=== PATIENT | female | born 1960 | race Caucasian/White ===

== ENCOUNTER 2018-10-15 10:06 | Day surgery (SDC) | payer OTHER, SELFPAY ==
[2018-08-03 12:47] VITALS: BMI 36.6
[2018-10-15] VITALS (7 sets, daily range): BP systolic 135–160; BP diastolic 77–93; PULSE 66–77; RESP 11–21; TEMP 35.9–36.3; O2SAT 92–96; BMI 35.9
--- NOTE | 2018-10-15 | PATH_ITS ---
[facility] Accession Number: [id number] . 01 Material submitted: . endometrium - ENDOMETRIAL POLYP . 01 Clinical history: . D/C HYSTEROSCOPY/POLYPECTOMY . 02 Diagnosis: Endometrial Polyp: Benign non-atypical epithelial hyperplasia (3-4 mm) present in a background of disordered proliferative endometrium; negative for cytologic atypia and malignancy. Many tissue fragments demonstrate prominent vessels, suggestive of polyp, if clinical and imaging findings are concordant. MRV/10/16/2018 . 02 Electronically signed: . Snow Burnette MD, Pathologist NPI- [id number] . 01 Gross description: . ENDOMETRIAL POLYP: Received in formalin are 1 fragment(s) of marion, soft tissue measuring 0.1 x 0.1 x 0.1 cm to 2.0 x 0.5 x 0.5 cm which is entirely submitted and submitted entirely in 3 cassette(s) /DMC /DMC . 02 Pathologist provided ICD-10: N84.0 . 02 CPT . 360175 Performed at: 01 [facility] [address] [facility], [place], [place] [id number] MD Kwaku Gomes MD Phone: [phone] Performed at: 02 [facility] [address] [place], [place] [id number] MD Lizy Eason MD Phone: [phone]
[2018-10-15] MEDS: LACTATED RINGERS 1,000 ML 42 ML IV (10:50)
--- NOTE | 2018-10-15 11:03 | PM.HP.1 ---
History of Present Illness Date Patient Seen: 10/15/18 Time Patient Seen: 11:03 Chief complaint: [id number] D&C HYSTEROSCOPY/POLYPECTOMY Narrative: Patient is a 58-year-old with postmenopausal bleeding and an endometrial polyp here for a D&C hysteroscopy and polypectomy Patient History Medical History (Updated 10/15/18 @ 11:04 by Emily Ku MD) Anxiety (Acute) Bipolar 1 disorder (Acute) Depression (Acute) GERD (gastroesophageal reflux disease) (Acute) HLD (hyperlipidemia) (Acute) HTN (hypertension) (Acute) Hypothyroidism (Acute) Poor sleep hygiene (Acute) Pulmonary embolism, bilateral (Acute ~03/2011) Surgical History (Updated 08/03/18 @ 12:52 by Lisa Call RN) H/O LEEP (Acute 02/20/17) Hx of varicose vein stripping (Acute) Status post laminectomy (~1989) Social History household members: spouse Smoking Status: Former smoker Family & Social History Social History: household members spouse Tobacco & Substance use: Smoking Status Former smoker Substance Use Type does not use Meds Home Medications Medication Instructions Recorded Confirmed Type divalproex [Depakote ER] 500 mg PO BID #0 01/30/17 10/15/18 History escitalopram oxalate [Lexapro] 20 mg PO QDAY #0 01/30/17 10/15/18 History lisinopril 5 mg PO HS #0 01/30/17 10/15/18 History clonazepam [Klonopin] 0.25 tab PO BID #0 02/16/17 10/15/18 History divalproex [Depakote] 250 mg PO HS #0 02/16/17 10/15/18 History omeprazole 20 mg PO BID #0 02/16/17 10/15/18 History simvastatin [Zocor] 20 mg PO HS #0 02/16/17 10/15/18 History levothyroxine 75 mcg capsule 75 mcg PO DAILY 06/19/18 10/15/18 History propranolol 20 mg tablet 20 mg PO BID MDD Anxiety 06/19/18 10/15/18 History meloxicam 15 mg PO DAILY 08/07/18 10/15/18 History lithium carbonate 150 mg capsule 300 mg PO Q OTHER DAY cap 10/11/18 10/15/18 History lithium carbonate 150 mg PO Q OTHER DAY 10/15/18 10/15/18 History Allergies Allergy/AdvReac Type Severity Reaction Status Date / Time No Known Drug Allergies Allergy Verified 10/15/18 10:23 Exam Vital Signs (past 8 hours): - 10/15/18 10:37 Temperature 96.6 F L Pulse Rate 70 Respiratory Rate 20 Blood Pressure 140/77 Pulse Oximetry 95 Oxygen Delivery Method Room Air Narrative Exam Narrative: HEENT: No thyromegaly, no anterior cervical or supraclavicular lymphadenopathy. Lungs:Clear to auscultation bilaterally, no wheezes. Cardiovascular: Regular rate and rhythm, no murmurs, rubs, or gallops. Abdomen: No scars. No hepatosplenomegaly. No masses palpable. External genitalia: Normal Vagina: Normal Cervix: Normal Bimanual exam: 6 Week size uterus. Mobile. Rectal: No masses. Ultrasound: Thickened endometrial lining consistent with a polyp Assessment & Plan (1) Postmenopausal bleeding: Current visit: Yes Status: Acute (2) Endometrial polyp: Current visit: Yes Status: Acute Assessment & Plan narrative: Assessment: 58-year-old with postmenopausal bleeding and an endometrial polyp Plan: D&C hysteroscopy with polypectomy. The risks, benefits, and alternatives to the procedure were explained to the patient. The risks including bleeding, infection, and uterine perforation. She understands these risks and agrees to proceed. A full par Q was held and consent form was signed. Time Spent With Patient Time with patient: 15-24 minutes
--- NOTE | 2018-10-15 11:05 | PM.PREOP ---
Pre-operative Note Interval Note History & Physical reviewed/Exam performed by Physician: Yes Changes to H&P: No
--- NOTE | 2018-10-15 12:01 | SUR.OPER ---
Lithotomy on padded OR bed, head on pillow, arms secured on padded arm boards at <90 degrees abduction. Legs secured in padded yellow fins stirrups.
--- NOTE | 2018-10-15 12:55 | SUR.PHASEI ---
1255 A&O; stable, denies pain/nausea. tolerating PO well. Preparing to transfer.
--- NOTE | 2018-10-15 13:00 | SUR.PHASEI ---
1255 No vag flow, A&O, stable.
--- NOTE | 2018-10-15 13:17 | SUR.PHASEII ---
1315 Stable and pleasant, no vag flow, denies pain/nausea. To home w/spouse.
--- NOTE | 2018-10-16 07:58 | P.OP_ITS ---
Operative Date/Time/Diagnoses Date of procedure: 10/15/18 Time of procedure: 12:30 Pre-op diagnosis: Postmenopausal bleeding Endometrial polyp Post-op diagnosis: same Procedure: Procedures Operation Date: 10/15/18 11:15 Actual Procedures Side Surgeon p Hysteroscopy D&C, polypectomy Emily Ku MD Indications: Postmenopausal bleeding Endometrial polyp by ultrasound Surgeon: Emily Ku Anesthesia Type: General (LMA) Operative Notes Findings: Large endometrial polyp originating from the anterior fundal wall Closure Type: not applicable Specimen(s): endometrial polyp Estimated blood loss (mL): 10 Blood products transfused: none Procedure in detail: After informed consent was obtained, the patient was taken to the operating room where she was placed in the dorsal supine position. After adequate LMA general anesthesia was achieved, she was placed in the dorsal lithotomy position, and prepped and draped in the usual sterile fashion. A time-out was performed. A bivalve speculum was placed into the vagina and the anterior lip of the cervix grasped with a single-tooth tenaculum. The cervical os was sequentially dilated to the # 9 Hegar dilator. The hysteroscope passed easily into the endometrial cavity. There was a large polyp originating from the anterior fundal wall. The hysteroscope was removed from the uterus. Polyp forceps were used to remove large pieces of the polyp. The hysteroscope passed easily into the endometrial cavity. Using the resectoscope the remainder of the polyp was resected with settings at 60 cut and 40 cautery. Hemostasis was achieved. The instruments were removed from the uterus. The single-tooth t enaculum was removed from the anterior lip of the cervix. The bivalve speculum was removed from the vagina. Sponge, lap, and instrument counts were correct x2. The patient tolerated the procedure well, and was taken to PACU in stable condition. Complications: none Post-operative Condition: stable Disposition: PACU Plan for aftercare: Home after recovery
== END 2018-10-15 13:15 | disposition home or self-care (01) ==
PROVIDERS: PCP Family Medicine; Visit Provider Obstetrics & Gynecology
PROC: 0UDB8ZZ Extraction of Endometrium, Via Natural or Artificial Opening Endoscopic (ICD-10-PCS; CPT 58558; principal; 2018-10-15 11:15)
DX: N84.0 Polyp of corpus uteri (principal); N95.0 Postmenopausal bleeding; I10 Essential (primary) hypertension; E03.9 Hypothyroidism, unspecified; Z87.891 Personal history of nicotine dependence; F31.9 Bipolar disorder, unspecified; Z86.711 Personal history of pulmonary embolism
CPT/HCPCS: 58558; J1100; J1885; J2250; J2405; J2704; J3010

== ENCOUNTER → 2019-04-03 14:36 | Outpatient (CLI) | payer OTHER, SELFPAY ==
--- NOTE | 2019-04-03 | DI.ECHO.S_ITS ---
[facility]---------+ [facility] +---------+ : : [address] : : : : [id number] : : : : Phone: [phone] Echocardiogram Report + + :Name: TERESITA GRAHAM Study Date: 04/03/2019 Height: 72 in : :[facility] Weight: 270 lb : : Gender: Female BSA: 2.4 m2 : :: 1960 Age: 59 yrs BP: 132/76 mmHg: :Reason For Study: Dyspnea : : Performed By: [facility] Staff : :Referring: BREANNA RUVALCABA : + + Interpretation Summary The left ventricle is normal in size. The ejection fraction is estimated to be 60-65%. The right ventricle is mildly dilated. The right ventricular systolic function is normal. No significant valvular pathology seen. Procedure: A two-dimensional transthoracic echocardiogram with color flow and Doppler was performed. The study quality was technically adequate. There is no prior echocardiogram noted for this patient. The patient was in normal sinus rhythm during the exam. Left Ventricle: The left ventricle is normal in size. There is normal left ventricular wall thickness. There is no thrombus. Left ventricular systolic function is normal. The ejection fraction is estimated to be 60-65%. Left ventricular wall motion is normal. Diastolic parameters suggest a relaxation abnormality of the left ventricle, consistent with probable normal filling pressures. Right Ventricle: The right ventricle is mildly dilated. The right ventricular systolic function is normal. Atria: The left atrial size is normal. Right atrial size is normal. The interatrial septum is intact with no evidence for an atrial septal defect. Mitral Valve: The mitral valve leaflets are slightly calcified. There is trace mitral regurgitation. Aortic Valve: The aortic valve is trileaflet. The aortic valve opens well. There is no aortic valve stenosis. No aortic regurgitation is present. Tricuspid Valve: The tricuspid valve is normal in structure and function. There is trace tricuspid regurgitation. Pulmonary artery pressures cannot be estimated because of the lack of a measurable TR jet velocity. Pulmonic Valve: The pulmonic valve is not well visualized. There is trace pulmonic regurgitation. Great Vessels: The aortic root is normal size. The dimensions of the ascending aorta are normal. The pulmonary artery is normal size. The inferior vena cava was not well visualized. Pericardium/ Pleura There is no pericardial effusion. There is no pleural effusion. MMode/2D Measurements & Calculations LVIDd: 5.0 cm LVOT diam: 2.0 cm LVIDs: 3.1 cm Ao root diam: 2.8 cm FS: 38.5 % asc Aorta Diam: 2.9 cm EPSS: 0.77 cm IVSd: 0.94 cm LVPWd: 1.1 cm LV rodriguez. diameter/BSA (cm/m^2): 2.1 LV sys. diameter/BSA (cm/m^2): 1.3 LA A2 area: 22.0 cm2 RA long axis: 5.5 cm LA A4 area: 19.9 cm2 RA area: 13.5 cm2 LA length (vol): 5.2 cm RA vol: 28.4 ml LA vol: 71.9 ml RA : 11.7 ml/m2 LA vol index: 29.7 ml/m2 TAPSE: 1.8 cm Doppler Measurements & Calculations Ao V2 max: 143.9 cm/sec LVOT Max Bismark: 117.8 cm/sec Ao V2 mean: 97.7 cm/sec LV V1 max P.6 mmHg Ao max P.3 mmHg LV V1 VTI: 26.7 cm Ao mean P.5 mmHg ELLIS(I,D): 3.0 cm2 Ao V2 VTI: 28.7 cm ELLIS(V,D): 2.6 cm2 sev ratio: 0.93 ELLIS indexed to BSA (cm^2/m^2): 1.2 MV E max bismark: 50.7 cm/sec TR max bismark: 228.5 cm/sec MV A max bismark: 89.3 cm/sec TR max P.9 mmHg MV E/A: 0.57 PA V2 max: 80.3 cm/sec Med Peak E' Bismark: 5.8 cm/sec PA V2 mean: 57.8 cm/sec E/E' med: 8.8 PA mean P.5 mmHg Lat Peak E' Bismark: 8.6 cm/sec PA Accel Time: 0.12 sec E/E' lat: 5.9 E/e' average: 7.3 MV dec time: 0.26 sec SV(LVOT): 86.3 ml Reading Physician:03:46 PM
== END ==
PROVIDERS: PCP Family Medicine; Visit Provider Internal Medicine Cardiovascular Disease
DX: R06.09 Other forms of dyspnea (principal)
CPT/HCPCS: 93306

== ENCOUNTER → 2019-05-02 14:10 | Outpatient (CLI) | payer OTHER, SELFPAY ==
--- NOTE | 2019-05-02 | DI.RAD.S_ITS ---
PROCEDURE: XR CHEST 2V INDICATIONS: Other disorders of lung TECHNIQUE: 2 views of the chest were acquired. COMPARISON: None. FINDINGS: Surgical changes and devices: None. Lungs and pleura: There is hazy opacification of the left lung base. Mediastinum: Mediastinal contours are normal. Heart size is normal. Bones and chest wall: No suspicious bony abnormalities. IMPRESSION: Hazy opacification of the left lung base most consistent with superimposition of overlapping soft tissues, with lung disease (including atelectasis, aspiration, or pneumonia) thought less likely. Dictated by: Graham Gonzalez M.D. on 05/02/2019 at 17:14 Approved by: Graham Gonzalez M.D. on 05/02/2019 at 17:17
--- NOTE | 2019-05-02 | DI.NM.S_ITS ---
PROCEDURE: NM PUL VENT AND PERFUSION RADIOPHARMACEUTICAL: 9.8 mCi Tc-99m DTPA aerosol by inhalation and 5.7 mCi Tc-99m MAA intravenously. INDICATIONS: Other disorders of lung TECHNIQUE: Ventilation images were obtained first with Tc-99m DTPA aerosol. Subsequently, perfusion images were acquired after intravenous injection of Tc-99m MAA. Anterior, posterior, CAMPOS, YI, RPO, LPO, left and right lateral views were obtained. COMPARISON: [facility], US, PVE UNILATERAL RIGHT, 01/18/2012, 19:08. [facility], US, PVE UNILATERAL RIGHT, 04/19/2011, 19:42. [facility], CT, PE STUDY (CTA CHEST), 04/19/2011, 19:20. [facility], CR, XR CHEST 2V, 05/02/2019, 14:09. FINDINGS: The comparison chest x-ray demonstrates no pulmonary infiltrate or pleural effusion. Technetium 99m DTPA ventilation images demonstrate mild central airway deposition of aerosol, otherwise physiocological activity. Perfusion images demonstrate no pleural-based, segmental or subsegmental ventilation perfusion mismatches. Ingested activity is noted in the stomach. IMPRESSION: 1. Very low likelihood ratio for pulmonary embolism. 2. Mild central airway deposition of aerosol suggesting mild reactive airway disease. Dictated by: Cady Blackburn M.D. on 05/02/2019 at 16:14 Approved by: Cady Blackburn M.D. on 05/02/2019 at 16:19
== END ==
PROVIDERS: PCP Family Medicine; Visit Provider Internal Medicine Pulmonary Disease
DX: J98.4 Other disorders of lung (principal); R06.09 Other forms of dyspnea
CPT/HCPCS: 71046; 78582; A9539; A9540

== ENCOUNTER → 2021-03-30 10:29 | Outpatient (CLI) | payer OTHER, SELFPAY ==
[2021-03-30 12:38] LABS: Thyroid Stimulating Hormone 0.982 uIU/mL (0.47-4.68)
[2021-03-31 08:26] LABS: Valproic Acid (Depakene) Total 48 ug/mL (50-100)
== END ==
PROVIDERS: PCP Family Medicine; Referring Provider Psychiatry & Neurology Psychiatry; Visit Provider Psychiatry & Neurology Psychiatry
DX: Z79.899 Other long term (current) drug therapy (principal)
CPT/HCPCS: 36415; 80164; 84443

== ENCOUNTER 2021-05-10 12:54 | Emergency (ER) | payer OTHER, SELFPAY ==
[2021-05-10 13:02] VITALS: BP 152/78; PULSE 62; RESP 18; TEMP 37.2; O2SAT 98; BMI 22.4
[2021-05-10 16:02] LABS: Bacteria Urine None Seen; Culture Indicated Urine Cult Not Indicated; RBC Urine None Seen (0-5/HPF); WBC Urine None Seen (0-5/HPF)
--- NOTE | 2021-05-10 16:02 | DI.CT.S_ITS ---
PROCEDURE: CT ABDOMEN PELVIS W CON INDICATIONS: Right sided abdominal pain TECHNIQUE: After the administration of oral and IV contrast, axial sections were acquired from the lung bases to the pubic symphysis. Coronal and sagittal reformats were performed. For radiation dose reduction, the following was used: automated exposure control, adjustment of mA and/or kV according to patient size. COMPARISON: CT, THORAX WITH CONTRAST, 08/21/2012, 16:19. FINDINGS: Image quality: Excellent. Lung bases: Mild left basilar atelectasis. Small hiatal hernia. Heart: No significant findings. ABDOMEN: Liver: Unremarkable. Gallbladder: Is surgically absent. Biliary ducts: Unremarkable. Pancreas: Unremarkable. Spleen: Unremarkable. Adrenal Glands: Unremarkable. Kidneys and Ureters: Normal in size and symmetric in enhancement. Small cortical nodules in kidneys are most likely cysts. Stomach and Bowel: There are post surgical changes in stomach. Stomach, small bowel loops, and colon are normal in caliber. There is a large amount of stool in colon. Mild diverticulosis without diverticulitis. Normal appendix. Peritoneum: No abnormal intraperitoneal fluid. No free air. Ventral Wall: No hernia. Abdominal Nodes: No retroperitoneal or mesenteric adenopathy by size criteria. Vessels: Aorta and inferior vena cava are normal in size. PELVIS: Pelvic Organs: Unremarkable. Bladder: Unremarkable. Pelvic Nodes: No enlarged lymph nodes. Miscellaneous: No inguinal hernias are seen. Bones: Degenerative disc and facet disease in lumbar spine. IMPRESSION: 1. No acute abnormalities in abdomen or pelvis. 2. Mild diverticulosis without diverticulitis. 3. A large amount of stool in colon. 4. Small hiatal hernia. Postsurgical changes in stomach. Dictated by: Cady Blackburn M.D. on 05/10/2021 at 17:14 Approved by: Cady Blackburn M.D. on 05/10/2021 at 17:29
[2021-05-10 16:26] LABS: Add Manual Diff / Slide Review NO; Basophils Absolute Auto 0 /uL (0-100); Basophils Percent Auto 0.8 % (0-2); Eosinophils Absolute Auto 100 /uL (0-450); Eosinophils Percent Auto 1.5 % (2-4); Hemoglobin 13.9 g/dL (12.0-16.0); Lymphocytes Absolute Auto 2500 /uL (1100-4500); Lymphocytes Percent Auto 42.6 % (25-40); Mean Corpuscular HGB Conc 33.8 % (30-36); Mean Corpuscular Hemoglobin 31.4 PG (26-34); Mean Corpuscular Volume 92.7 fL (80-100); Monocytes Absolute Auto 700 /uL (0-900); Monocytes Percent Auto 11.6 % (3-14); Neutrophils Absolute Auto 2500 /uL (1500-7000); Neutrophils Percent Auto 43.5 % (50-75); Platelet Count 159 X10^3/uL (150-400); Red Blood Cell Count 4.42 X10^6/uL (4.0-5.2); White Blood Cell Count 5.8 X10^3/uL (4.5-11.0)
--- NOTE | 2021-05-10 16:33 | ED_ITS ---
HPI - Abdominal Pain <Gallito Fofana PA-C - Last Filed: 05/10/21 18:16> General Chief Complaint: Abdominal Pain Stated Complaint: abd. pain, low grade fever, nausa Time Seen by Provider: 05/10/21 15:10 Source: patient Mode of arrival: Ambulatory History of Present Illness HPI narrative: 61-year-old female with history obstructive sleep apnea, cervical mass, prior bariatric surgery presents to the ED with 2 months of abdominal pain. Patient states that she has been having nighttime sharp abdominal pain in the right upper and lower quadrants for the last 2 months, however over the last 2 days patient is experiencing the pain during the daytime as well. Patient also endorses nausea. Patient also endorses all over body aches, low-grade fever of 99.5 for the past week. Patient states that she did a home test for COVID-19 which was negative. Patient is vaccinated for COVID. Patient denies chills, chest pain, shortness of breath, cough, vomiting, dysuria, lightheadedness, syncope. Patient had a bariatric surgery for weight loss purposes 10 months prior to arrival. Related Data Home Medications Medication Instructions Recorded Confirmed divalproex 500 mg tablet,extended 500 mg PO BID #0 01/30/17 01/24/19 release 24 hr (Depakote ER) escitalopram oxalate 20 mg tablet 20 mg PO QDAY #0 01/30/17 01/24/19 (Lexapro) lisinopril 5 mg tablet 5 mg PO HS #0 01/30/17 01/24/19 clonazepam 0.5 mg tablet (Klonopin) 0.25 tab PO BID #0 02/16/17 01/24/19 divalproex 250 mg tablet,delayed 250 mg PO HS #0 02/16/17 01/24/19 release (Depakote) omeprazole 20 mg capsule,delayed 20 mg PO BID #0 02/16/17 01/24/19 release simvastatin 20 mg tablet (Zocor) 20 mg PO HS #0 02/16/17 01/24/19 levothyroxine 75 mcg capsule 75 mcg PO DAILY 06/19/18 01/24/19 propranolol 20 mg tablet 20 mg PO BID MDD Anxiety 06/19/18 01/24/19 meloxicam 15 mg tablet 15 mg PO DAILY 08/07/18 01/24/19 lithium carbonate 150 mg capsule 300 mg PO Q OTHER DAY cap 10/11/18 01/24/19 lithium carbonate 150 mg capsule 150 mg PO Q OTHER DAY 10/15/18 01/24/19 Respironics Dreamstation CPAP #1 [id number] 01/24/19 01/24/19 Previous Rx's Medication Instructions Recorded zaleplon 5 mg capsule 5 mg PO DAILY #2 cap 11/12/18 Allergies Allergy/AdvReac Type Severity Reaction Status Date / Time No Known Drug Allergies Allergy Verified 05/10/21 13:06 Review of Systems <Gallito Fofana PA-C - Last Filed: 05/10/21 18:16> Review of Systems ROS Unobtainable: All systems reviewed & are unremarkable except as noted in HPI and below Constitutional Constitutional: Reports body ache(s), Denies chills, Reports fatigue, Denies fever(s), Denies frequent falls, Denies lethargy and Denies weakness Eyes Eyes: Denies change in vision, Denies eye discharge, Denies irritation and Denies loss of vision ENT Ears, Nose, Mouth, and Throat: Denies change in voice, Denies dizziness, Denies neck pain, Denies sore throat and Denies throat swelling Cardiovascular Cardiovascular: Denies chest pain, Denies irregular heart rhythm, Denies lightheadedness, Denies palpitations, Denies dyspnea, Denies dyspnea on exertion and Denies orthopnea Respiratory Respiratory: Denies cough, Denies dyspnea, Denies dyspnea on exertion and Denies wheezing Gastrointestinal Gastrointestinal: Reports abdominal pain, Denies change in bowel habits, Denies diarrhea, Reports nausea and Denies vomiting Genitourinary Genitourinary: Denies hematuria, Denies flank pain, Denies urinary incontinence and Denies urinary urgency Musculoskeletal Musculoskeletal: Denies back pain, Denies muscle weakness, Denies neck pain, Denies numbness and Denies tingling Integumentary/Breasts Skin/Breast: Denies pruritus, Denies erythema, Denies rash and Denies wounds Neurologic Neurologic: Denies behavioral changes, Denies confusion, Denies dizziness, Denies frequent falls, Denies loss of vision, Denies numbness, Denies tingling and Denies weakness Psychiatric Psychiatric: Denies anxiety, Denies behavioral changes, Denies confusion, Denies depression, Denies homicidal ideation and Denies suicidal ideation Endocrine Endocrine: Reports fatigue, Denies flushing and Denies palpitations Hematologic/Lymphatic Hematologic/Lymphatic: Denies easy bruising Allergic/Immunologic Allergic/Immunologic: Denies urticaria, Denies throat swelling and Denies wheezing Patient History <Gallito Fofana PA-C - Last Filed: 05/10/21 18:16> Medical History Anxiety Bipolar 1 disorder Depression Depression GERD (gastroesophageal reflux disease) HLD (hyperlipidemia) HTN (hypertension) Hypothyroidism Insomnia Obesity (BMI 30-39.9) Obstructive sleep apnea of adult Poor sleep hygiene Pulmonary embolism, bilateral (~03/2011) Snoring Surgical History H/O LEEP (02/20/17) Hx of varicose vein stripping Status post laminectomy (~1989) Social History household members: spouse Smoking Status: Former smoker Smoking Status: Former smoker alcohol intake frequency: 0-2 drinks per day Substance Use Type: does not use Exam <Gallito Fofana PA-C - Last Filed: 05/10/21 18:16> Initial Vital Signs Initial Vital Signs: Vital Signs Temperature 99 F 05/10/21 13:02 Pulse Rate 62 05/10/21 13:02 Respiratory Rate 18 05/10/21 13:02 Blood Pressure 152/78 H 05/10/21 13:02 Pulse Oximetry 98 05/10/21 13:02 Const General: cooperative, healthy appearing and comfortable [facility] Head: normal to inspection Throat: posterior oropharynx normal Eyes General: appearance normal, both eyes and all related structures Neck Neck: normal visual inspection Chest Chest: normal inspection of the chest Resp Effort & Inspection: normal respiratory effort Auscultation: clear to auscultation bilaterally Cardio Rate: regular rate Rhythm: regular rhythm GI Inspection: normal to inspection Other: Abdomen is soft, nondistended, nontender to palpation. No CVA tenderness. General: No CVA tenderness Skin General: no rashes or lesions noted Neuro General: patient alert, patient awake and patient oriented x3 Psych Appearance: grossly normal <Natalya Lindo DO - Last Filed: 05/11/21 09:17> Initial Vital Signs Initial Vital Signs: Vital Signs Temperature 99 F 05/10/21 13:02 Pulse Rate 62 05/10/21 13:02 Respiratory Rate 18 05/10/21 13:02 Blood Pressure 152/78 H 05/10/21 13:02 Pulse Oximetry 98 05/10/21 13:02 Course <Gallito Fofana PA-C - Last Filed: 05/10/21 18:16> Orders Ordered: ED Orders 05/10/21 15:33 Urine Microscopic Stat 05/10/21 16:02 CT abdomen pelvis w con Stat 05/10/21 16:10 CBC Auto Diff [Complete Blood Count AUTO DIFF] Stat CMP [Comprehensive Metabolic Panel] Stat Lactate (Lactic Acid) Stat Lipase Stat 05/10/21 16:24 COVID19 -Nasal swab/Pre-Proc Stat Vital Signs Vital signs: Vital Signs - 8 hr 05/10/21 13:02 Temperature 99 F Pulse Rate 62 Respiratory Rate 18 Blood Pressure 152/78 H Pulse Oximetry 98 <Natalya Lindo DO - Last Filed: 05/11/21 09:17> Orders Ordered: ED Orders 05/10/21 15:33 Urine Microscopic Stat 05/10/21 16:02 CT abdomen pelvis w con Stat 05/10/21 16:10 CBC Auto Diff [Complete Blood Count AUTO DIFF] Stat CMP [Comprehensive Metabolic Panel] Stat Lactate (Lactic Acid) Stat Lipase Stat 05/10/21 16:24 COVID19 -Nasal swab/Pre-Proc Stat Vital Signs Vital signs: Vital Signs - 8 hr 05/10/21 13:02 Temperature 99 F Pulse Rate 62 Respiratory Rate 18 Blood Pressure 152/78 H Pulse Oximetry 98 MDM - Abdominal Pain <CASTRO Bob Last Filed: 05/10/21 18:16> Lab Data Lab results narrative: Labs within normal limits Result diagrams: 05/10/21 16:10 05/10/21 16:10 Labs: Lab Results 05/10/21 05/10/21 05/10/21 Range/Units 15:33 16:10 16:10 WBC 5.8 (4.5-11.0) X10^3/uL RBC 4.42 (4.0-5.2) X10^6/uL Hgb 13.9 (12.0-16.0) g/dL Hct 41.0 (36-46) % MCV 92.7 (80-100) fL MCH 31.4 (26-34) PG MCHC 33.8 (30-36) % RDW 13.0 (11.6-14.8) % Plt Count 159 (150-400) X10^3/uL Neut % (Auto) 43.5 L (50-75) % Lymph % (Auto) 42.6 H (25-40) % Wilkin % (Auto) 11.6 (3-14) % Eos % (Auto) 1.5 L (2-4) % Baso % (Auto) 0.8 (0-2) % Neut # (Auto) 2500 (7649-4865) /uL Lymph # (Auto) 2500 (6947-3236) /uL Wilkin # (Auto) 700 (0-900) /uL Eos # (Auto) 100 (0-450) /uL Baso # (Auto) 0 (0-100) /uL Sodium 138 (137-145) mmol/L Potassium 4.5 (3.4-5.1) mmol/L Chloride 104 (98-107) mmol/L Carbon Dioxide 31 (22-32) mmol/L BUN 27 H (7-17) mg/dL Creatinine 0.61 (0.52-1.04) mg/dL Estimated GFR > 60.0 (>60) mL/min BUN/Creatinine Ratio 44.3 H (6-22) Glucose 79 L (80-110) mg/dL Lactate (0.7-2.1) mmol/L Calcium 9.7 (8.4-10.2) mg/dL Total Bilirubin 0.2 (0.2-1.3) mg/dL AST 39 H (14-36) IU/L ALT 30 (<35) IU/L Alkaline Phosphatase 45 (38-126) U/L Total Protein 6.9 (6.3-8.2) g/dL Albumin 3.8 (3.5-5.0) g/dL Globulin 3.1 (1.7-4.1) g/dL Albumin/Globulin Ratio 1.2 (1.0-2.8) Lipase 132 (23-300) U/L Urine RBC None seen (0-5/HPF) Urine WBC None seen (0-5/HPF) Urine Bacteria None seen (None) Ur Culture Indicated? Cult not indicated SARS-CoV-2 (PCR) (Negative) 05/10/21 05/10/21 Range/Units 16:10 17:44 WBC (4.5-11.0) X10^3/uL RBC (4.0-5.2) X10^6/uL Hgb (12.0-16.0) g/dL Hct (36-46) % MCV (80-100) fL MCH (26-34) PG MCHC (30-36) % RDW (11.6-14.8) % Plt Count (150-400) X10^3/uL Neut % (Auto) (50-75) % Lymph % (Auto) (25-40) % Wilkin % (Auto) (3-14) % Eos % (Auto) (2-4) % Baso % (Auto) (0-2) % Neut # (Auto) (8679-8993) /uL Lymph # (Auto) (4884-1374) /uL Wilkin # (Auto) (0-900) /uL Eos # (Auto) (0-450) /uL Baso # (Auto) (0-100) /uL Sodium (137-145) mmol/L Potassium (3.4-5.1) mmol/L Chloride (98-107) mmol/L Carbon Dioxide (22-32) mmol/L BUN (7-17) mg/dL Creatinine (0.52-1.04) mg/dL Estimated GFR (>60) mL/min BUN/Creatinine Ratio (6-22) Glucose (80-110) mg/dL Lactate 0.6 L (0.7-2.1) mmol/L Calcium (8.4-10.2) mg/dL Total Bilirubin (0.2-1.3) mg/dL AST (14-36) IU/L ALT (<35) IU/L Alkaline Phosphatase (38-126) U/L Total Protein (6.3-8.2) g/dL Albumin (3.5-5.0) g/dL Globulin (1.7-4.1) g/dL Albumin/Globulin Ratio (1.0-2.8) Lipase (23-300) U/L Urine RBC (0-5/HPF) Urine WBC (0-5/HPF) Urine Bacteria (None) Ur Culture Indicated? SARS-CoV-2 (PCR) Negative (Negative) Point of care testing: Urine Dip Bedside Urine Glucose Negative Bedside Urine Bilirubin - Negative Bedside Urine Ketone - Negative Urine Specific Shubuta 1.025 Bedside Urine Occult Blood +/- Bedside Urine pH 6.0 Bedside Urine Protein - Negative Bedside Urine Urobilinogen - Negative Bedside Urine Nitrite - Negative Bedside Urine Leukocytes - Negative Esterase Imaging Data CT scan - abdomen/pelvis: Radiologist's Impression: PROCEDURE:? CT ABDOMEN PELVIS W CON ? INDICATIONS:? Right sided abdominal pain ? TECHNIQUE:? After the administration of oral and IV contrast, axial sections were acquired from the lung bases to the pubic symphysis.? Coronal and sagittal reformats were performed.? For radiation dose reduction, the following was used:? automated exposure control, adjustment of mA and/or kV according to patient size. ? COMPARISON:? CT, THORAX WITH CONTRAST, 08/21/2012, 16:19. ? FINDINGS:? Image quality:? Excellent.? ? Lung bases:? Mild left basilar atelectasis.? Small hiatal hernia. Heart:? No significant findings. ? ? ABDOMEN: Liver:? Unremarkable.? ? Gallbladder:? Is surgically absent.? ? Biliary ducts:? Unremarkable.? ? Pancreas:? Unremarkable.? ? Spleen:? Unremarkable.? ? Adrenal Glands:? Unremarkable.? ? Kidneys and Ureters:? Normal in size and symmetric in enhancement.? Small cortical nodules in kidneys are most likely cysts.? ? ? Stomach and Bowel:? There are post surgical changes in stomach.? Stomach, small bowel loops, and colon are normal in caliber.? There is a large amount of stool in colon.? Mild diverticulosis without diverticulitis.? Normal appendix. Peritoneum:? No abnormal intraperitoneal fluid.? No free air.? ? Ventral Wall: ? No hernia.? Abdominal Nodes:? No retroperitoneal or mesenteric adenopathy by size criteria.? Vessels:? Aorta and inferior vena cava are normal in size.? ? PELVIS: Pelvic Organs:? Unremarkable.? ? Bladder:? Unremarkable.? ? Pelvic Nodes: No enlarged lymph nodes.? Miscellaneous: No inguinal hernias are seen. ? ? ? Bones:? Degenerative disc and facet disease in lumbar spine.? IMPRESSION:? ? 1. No acute abnormalities in abdomen or pelvis. 2. Mild diverticulosis without diverticulitis. 3. A large amount of stool in colon. 4. Small hiatal hernia.? Postsurgical changes in stomach.? ? ? Dictated by: Cady Blackburn M.D. on 05/10/2021 at 17:14 ? ? Approved by: Cady Blackburn M.D. on 05/10/2021 at 17:29 ? MDM Narrative Medical decision making narrative: 61-year-old female with history obstructive sleep apnea, cervical mass, prior bariatric surgery presents to the ED with 2 months of abdominal pain. Concern for SBO versus appendicitis versus constipation versus COVID-19. Will order labs, CT abdomen pelvis. Will reassess. Labs and CT abdomen pelvis were normal. CT showed large stool burden. Di chelsey patient with ED return precautions and counseling to take MiraLax for constipation. Patient verbalized understanding. <Natalya Lindo, DO - Last Filed: 05/11/21 09:17> Lab Data Labs: Lab Results 05/10/21 05/10/21 05/10/21 Range/Units 15:33 16:10 16:10 WBC 5.8 (4.5-11.0) X10^3/uL RBC 4.42 (4.0-5.2) X10^6/uL Hgb 13.9 (12.0-16.0) g/dL Hct 41.0 (36-46) % MCV 92.7 (80-100) fL MCH 31.4 (26-34) PG MCHC 33.8 (30-36) % RDW 13.0 (11.6-14.8) % Plt Count 159 (150-400) X10^3/uL Neut % (Auto) 43.5 L (50-75) % Lymph % (Auto) 42.6 H (25-40) % Wilkin % (Auto) 11.6 (3-14) % Eos % (Auto) 1.5 L (2-4) % Baso % (Auto) 0.8 (0-2) % Neut # (Auto) 2500 (5932-0825) /uL Lymph # (Auto) 2500 (6869-2246) /uL Wilkin # (Auto) 700 (0-900) /uL Eos # (Auto) 100 (0-450) /uL Baso # (Auto) 0 (0-100) /uL Sodium 138 (137-145) mmol/L Potassium 4.5 (3.4-5.1) mmol/L Chloride 104 (98-107) mmol/L Carbon Dioxide 31 (22-32) mmol/L BUN 27 H (7-17) mg/dL Creatinine 0.61 (0.52-1.04) mg/dL Estimated GFR > 60.0 (>60) mL/min BUN/Creatinine Ratio 44.3 H (6-22) Glucose 79 L (80-110) mg/dL Lactate (0.7-2.1) mmol/L Calcium 9.7 (8.4-10.2) mg/dL Total Bilirubin 0.2 (0.2-1.3) mg/dL AST 39 H (14-36) IU/L ALT 30 (<35) IU/L Alkaline Phosphatase 45 (38-126) U/L Total Protein 6.9 (6.3-8.2) g/dL Albumin 3.8 (3.5-5.0) g/dL Globulin 3.1 (1.7-4.1) g/dL Albumin/Globulin Ratio 1.2 (1.0-2.8) Lipase 132 (23-300) U/L Urine RBC None seen (0-5/HPF) Urine WBC None seen (0-5/HPF) Urine Bacteria None seen (None) Ur Culture Indicated? Cult not indicated SARS-CoV-2 (PCR) (Negative) 05/10/21 05/10/21 Range/Units 16:10 17:44 WBC (4.5-11.0) X10^3/uL RBC (4.0-5.2) X10^6/uL Hgb (12.0-16.0) g/dL Hct (36-46) % MCV (80-100) fL MCH (26-34) PG MCHC (30-36) % RDW (11.6-14.8) % Plt Count (150-400) X10^3/uL Neut % (Auto) (50-75) % Lymph % (Auto) (25-40) % Wilkin % (Auto) (3-14) % Eos % (Auto) (2-4) % Baso % (Auto) (0-2) % Neut # (Auto) (3556-7034) /uL Lymph # (Auto) (0455-9244) /uL Wilkin # (Auto) (0-900) /uL Eos # (Auto) (0-450) /uL Baso # (Auto) (0-100) /uL Sodium (137-145) mmol/L Potassium (3.4-5.1) mmol/L Chloride (98-107) mmol/L Carbon Dioxide (22-32) mmol/L BUN (7-17) mg/dL Creatinine (0.52-1.04) mg/dL Estimated GFR (>60) mL/min BUN/Creatinine Ratio (6-22) Glucose (80-110) mg/dL Lactate 0.6 L (0.7-2.1) mmol/L Calcium (8.4-10.2) mg/dL Total Bilirubin (0.2-1.3) mg/dL AST (14-36) IU/L ALT (<35) IU/L Alkaline Phosphatase (38-126) U/L Total Protein (6.3-8.2) g/dL Albumin (3.5-5.0) g/dL Globulin (1.7-4.1) g/dL Albumin/Globulin Ratio (1.0-2.8) Lipase (23-300) U/L Urine RBC (0-5/HPF) Urine WBC (0-5/HPF) Urine Bacteria (None) Ur Culture Indicated? SARS-CoV-2 (PCR) Negative (Negative) Point of care testing: Urine Dip Bedside Urine Glucose Negative Bedside Urine Bilirubin - Negative Bedside Urine Ketone - Negative Urine Specific Shubuta 1.025 Bedside Urine Occult Blood +/- Bedside Urine pH 6.0 Bedside Urine Protein - Negative Bedside Urine Urobilinogen - Negative Bedside Urine Nitrite - Negative Bedside Urine Leukocytes - Negative Esterase Discharge Plan Departure Patient Disposition: Home Clinical Impression: Abdominal pain Instructions: DI for Abdominal Pain-Adult Activity Restrictions/Additional Instructions: You were evaluated in the ED today for abdominal pain. Your labs, CT scan of the abdomen were normal. Your CT scan did show a large amount of stool. You may take MiraLax to resolve your symptoms. Return to the ED if your symptoms worsens, you experience chest pain, shortness of breath. Prescriptions: No Action lisinopril 5 MG tablet 5 mg PO HS Qty: 0 0RF escitalopram oxalate [Lexapro] 20 MG tablet 20 mg PO QDAY Qty: 0 0RF divalproex [Depakote ER] 500 MG tablet extended release 24 hr 500 mg PO BID Qty: 0 0RF clonazepam [Klonopin] 0.5 MG tablet 0.25 tab PO BID Qty: 0 0RF divalproex [Depakote] 250 MG tablet,delayed release (DR/EC) 250 mg PO HS Qty: 0 0RF simvastatin [Zocor] 20 MG tablet 20 mg PO HS Qty: 0 0RF omeprazole 20 MG capsule,delayed release(DR/EC) 20 mg PO BID Qty: 0 0RF zaleplon 5 mg capsule 5 mg PO DAILY Qty: 2 0RF Rx Instructions: Take one capsule 30 minutes before Sleep Study on 11/13/18. meloxicam 15 mg Tablet 15 mg PO DAILY 0RF lithium carbonate 150 mg Capsule 150 mg PO Q OTHER DAY 0RF propranolol 20 mg tablet 20 mg PO BID MDD Anxiety 0RF levothyroxine 75 mcg capsule 75 mcg PO DAILY 0RF lithium carbonate 150 mg capsule 300 mg PO Q OTHER DAY 0RF (DME) Respironics Dreamstation CPAP Qty: 1 0RF Label Comments: Pressure: 8-12 cmH2O DME: [facility] Rx Instructions: As directed Referrals: Roslyn Sawant MD [Primary Care Provider] - <Natalya Linod DO - Last Filed: 05/11/21 09:17> Cosign ED Attending Cosignature Attestation: I was immediately available in the department for consultation. Documentation has been reviewed.
[2021-05-10 16:46] LABS: Lactate (Lactic Acid) 0.6 mmol/L (0.7-2.1)
[2021-05-10 16:47] LABS: Alanine Aminotransferase 30 IU/L (<35); Albumin 3.8 g/dL (3.5-5.0); Albumin Globulin Ratio 1.2 (1.0-2.8); Alkaline Phosphatase 45 U/L (38-126); Aspartate Aminotransferase 39 IU/L (14-36); BUN Creatinine Ratio 44.3 (6-22); Bilirubin Total 0.2 mg/dL (0.2-1.3); Blood Urea Nitrogen 27 mg/dL (7-17); Calcium 9.7 mg/dL (8.4-10.2); Carbon Dioxide 31 mmol/L (22-32); Chloride 104 mmol/L (98-107); Estimated Glomerular Filt Rate > 60.0 mL/min (>60); Globulin 3.1 g/dL (1.7-4.1); Glucose 79 mg/dL (80-110); HEMOLYSIS 21 (0-50); Lipase 132 U/L (23-300); Potassium 4.5 mmol/L (3.4-5.1); Sodium 138 mmol/L (137-145); Total Protein 6.9 g/dL (6.3-8.2)
[2021-05-10 18:14] LABS: COVID19 -Nasal RAPID Negative (Negative)
== END 2021-05-10 18:00 | disposition home or self-care (01) ==
PROVIDERS: Emergency Provider Student in an Organized Health Care Education/Training Program; PCP Family Medicine
DX: R10.11 Right upper quadrant pain (principal); R10.31 Right lower quadrant pain; Z87.891 Personal history of nicotine dependence; Z20.822 Contact with and (suspected) exposure to COVID-19
CPT/HCPCS: 36415; 74177; 80053; 81003; 81015; 83605; 83690; 85025; 87635; 99284; C9803; Q9967

== ENCOUNTER → 2021-07-07 06:54 | Outpatient (CLI) | payer OTHER, SELFPAY ==
[2021-07-07 08:02] LABS: Add Manual Diff / Slide Review NO; Basophils Absolute Auto 0 /uL (0-100); Basophils Percent Auto 1.1 % (0-2); Eosinophils Absolute Auto 100 /uL (0-450); Eosinophils Percent Auto 2.2 % (2-4); Hematocrit 43.5 % (36-46); Hemoglobin 14.6 g/dL (12.0-16.0); Lymphocytes Absolute Auto 2400 /uL (1100-4500); Lymphocytes Percent Auto 54.8 % (25-40); Mean Corpuscular HGB Conc 33.5 % (30-36); Mean Corpuscular Hemoglobin 31.3 PG (26-34); Mean Corpuscular Volume 93.6 fL (80-100); Monocytes Absolute Auto 600 /uL (0-900); Monocytes Percent Auto 13.5 % (3-14); Neutrophils Absolute Auto 1200 /uL (1500-7000); Neutrophils Percent Auto 28.4 % (50-75); Platelet Count 203 X10^3/uL (150-400); Red Blood Cell Count 4.65 X10^6/uL (4.0-5.2); Red Cell Distribution Width 13.4 % (11.6-14.8); White Blood Cell Count 4.3 X10^3/uL (4.5-11.0)
[2021-07-07 08:08] LABS: Hemoglobin A1C% w Est Avg Glu 4.9 % (4.0-6.0)
[2021-07-07 08:15] LABS: Iron 94 ug/dL (37-170)
[2021-07-07 08:18] LABS: Alanine Aminotransferase 22 IU/L (<35); Albumin 4.3 g/dL (3.5-5.0); Albumin Globulin Ratio 1.3 (1.0-2.8); Alkaline Phosphatase 64 U/L (38-126); Aspartate Aminotransferase 36 IU/L (14-36); BUN Creatinine Ratio 26.8 (6-22); Bilirubin Total 0.3 mg/dL (0.2-1.3); Blood Urea Nitrogen 19 mg/dL (7-17); Calcium 9.8 mg/dL (8.4-10.2); Carbon Dioxide 32 mmol/L (22-32); Chloride 104 mmol/L (98-107); Cholesterol 244 mg/dL (140-199); Estimated Glomerular Filt Rate > 60.0 mL/min (>60); Globulin 3.2 g/dL (1.7-4.1); Glucose 75 mg/dL (80-110); HDL Cholesterol 69 mg/dL (40-60); HEMOLYSIS < 15 (0-50); LDL Cholesterol Calculated 155 mg/dL (<100); Potassium 4.1 mmol/L (3.4-5.1); Sodium 141 mmol/L (137-145); Total Protein 7.5 g/dL (6.3-8.2); Triglycerides 102 mg/dL (35-150)
[2021-07-07 08:30] LABS: Vitamin D 25 Hydroxy (D3) 53.1 ng/mL (30.0-100.0)
[2021-07-07 08:39] LABS: Total Iron Binding Capacity 260 ug/dL (265-497)
[2021-07-07 08:45] LABS: Thyroid Stimulating Hormone 2.67 uIU/mL (0.47-4.68)
[2021-07-07 08:50] LABS: Ferritin 92 ng/mL (11-264)
[2021-07-07 09:21] LABS: Folate > 20.0 ng/mL (2.76-20.0); Vitamin B12 921 pg/mL (239-931)
== END ==
PROVIDERS: PCP Family Medicine; Referring Provider Surgery; Visit Provider Surgery
DX: Z98.84 Bariatric surgery status (principal); K90.9 Intestinal malabsorption, unspecified; E63.9 Nutritional deficiency, unspecified
CPT/HCPCS: 36415; 80053; 80061; 82306; 82607; 82728; 82746; 83036; 83540; 83550; 84425; 84443; 85025

== ENCOUNTER → 2021-07-15 10:44 | Outpatient (CLI) | payer OTHER, SELFPAY ==
[2021-07-16 04:11] LABS: Valproic Acid (Depakene) Total 65 ug/mL (50-100)
== END ==
PROVIDERS: PCP Family Medicine; Referring Provider Psychiatry & Neurology Psychiatry; Visit Provider Psychiatry & Neurology Psychiatry
DX: Z79.899 Other long term (current) drug therapy (principal)
CPT/HCPCS: 36415; 80164

== ENCOUNTER → 2021-12-16 10:03 | Outpatient (CLI) | payer OTHER, SELFPAY ==
--- NOTE | 2021-12-16 | DI.MG.S_ITS ---
BILATERAL DIGITAL SCREENING MAMMOGRAM 3D/2D WITH CAD: 12/16/2021 CLINICAL: Routine screening. Family history of breast cancer. Comparison is made to exams dated: 11/20/2020 mammogram - [facility], 03/27/2017 mammogram - [facility], and 12/17/2013 mammogram - [facility]. There are scattered areas of fibroglandular density in both breasts (category b / 25%-50% glandular tissue). Current study was also evaluated with a Computer Aided Detection (CAD) system. No significant masses, calcifications, or other findings are seen in either breast. There has been no significant interval change. IMPRESSION: NEGATIVE There is no mammographic evidence of malignancy. A 1 year screening mammogram is recommended. Based on the Tyrer Cuzick model (a risk assessment model) the patient's lifetime risk is 7.3% and her 10 year risk is 2.9%. According to the ACR, ACS, and NCCN guidelines, an annual breast MRI exam along with mammogram is recommended if the patient's lifetime risk is 20% or greater. This exam was interpreted at Station ID: [id number]. NOTE: For mammograms, a report in lay terms will be sent to the patient. Approximately 15% of breast malignancies will not be visualized mammographically. In the management of a palpable breast mass, a negative mammogram must not discourage biopsy of a clinically suspicious lesion. Electronically Signed By: Zoe agarwal/sveta:12/16/2021 14:36:09 letter sent: Normal Exam ACR BI-RADS Category 1: Negative [id number]
== END ==
PROVIDERS: PCP Nurse Practitioner Family; Referring Provider Nurse Practitioner Family; Visit Provider Nurse Practitioner Family
DX: Z12.31 Encounter for screening mammogram for malignant neoplasm of breast (principal); Z80.3 Family history of malignant neoplasm of breast
CPT/HCPCS: 77063; 77067

== ENCOUNTER → 2022-02-15 15:03 | Outpatient (CLI) | payer OTHER, SELFPAY ==
--- NOTE | 2022-02-15 | DI.MRI.S_ITS ---
PROCEDURE: MR CERVICAL SPINE WO CON INDICATIONS: Spinal stenosis, cervical region TECHNIQUE: Noncontrast sagittal T1 spin echo and T2 fast spin echo, sagittal STIR, foraminal oblique sagittal T2 fast spin echo, and axial gradient echo or T2 fast spin echo through the cervical spine. COMPARISON: None. FINDINGS: Image quality: Excellent. Alignment and Curvature: There is normal bony alignment. Bone Marrow: Marrow demonstrates normal overall signal. There is increased T1 and T2 signal at T1 most suggestive of hemangioma. Mild reactive endplate changes are present at C5-6. Spinal Cord: Visualized spinal cord has normal size and signal. No cerebellar tonsillar herniation. Paraspinous Soft Tissues: No paravertebral masses. Prevertebral soft tissues are normal in thickness. Discs: Overall minimal to mild disc desiccation is present, moderate at C5-6. C2-C3: No disc bulge, spinal stenosis or foraminal narrowing. C3-C4: No disc bulge or spinal stenosis. Questionable trace bilateral foraminal narrowing with uncovertebral hypertrophy. C4-C5: No disc bulge, spinal stenosis or foraminal narrowing. C5-C6: Mild disc bulge with effacement of the anterior thecal sac. Mild to moderate right foraminal narrowing with uncovertebral hypertrophy. C6-C7: No disc bulge, spinal stenosis or foraminal narrowing. C7-T1: No disc bulge, spinal stenosis or foraminal narrowing. IMPRESSION: Early degenerative changes most notable at C5-6 as above. Dictated by: Alisa Nuñez M.D. on 02/15/2022 at 16:24 Approved by: Alisa Nuñez M.D. on 02/15/2022 at 16:25
== END ==
PROVIDERS: PCP Nurse Practitioner Family; Referring Provider Physical Medicine & Rehabilitation; Visit Provider Physical Medicine & Rehabilitation
DX: M48.02 Spinal stenosis, cervical region (principal); M47.812 Spondylosis without myelopathy or radiculopathy, cervical region
CPT/HCPCS: 72141

== ENCOUNTER → 2022-03-07 09:57 | Outpatient (CLI) | payer OTHER, SELFPAY ==
[2022-03-07 11:34] LABS: Erythrocyte Sedimentation Rate 12 MM/HR (0-20)
[2022-03-07 11:49] LABS: C-Reactive Protein Quant < 0.5 mg/dL (<1.0)
[2022-03-07 11:50] LABS: Rheumatoid Factor < 8.6 IU/mL (<12.0)
[2022-03-08 18:16] LABS: SS A Ro Sjogrens Antibody < 0.2 AI (0.0-0.9); SS B La Sjogrens Antibody < 0.2 AI (0.0-0.9)
[2022-03-09 20:45] LABS: CCP Antibodies IgG/IgA 3 units (0-19)
[2022-03-10 17:52] LABS: ANA Screen, IFA Negative (.)
== END ==
PROVIDERS: PCP Nurse Practitioner Family; Referring Provider Physical Medicine & Rehabilitation; Visit Provider Physical Medicine & Rehabilitation
DX: G90.09 Other idiopathic peripheral autonomic neuropathy (principal)
CPT/HCPCS: 36415; 85651; 86038; 86140; 86200; 86235; 86430

== ENCOUNTER → 2022-05-10 10:33 | Outpatient (CLI) | payer OTHER, SELFPAY | PROVIDERS: PCP Nurse Practitioner Family; Referring Provider Nurse Practitioner Family; Visit Provider Nurse Practitioner Family | DX: Z78.0 Asymptomatic menopausal state (principal); Z13.820 Encounter for screening for osteoporosis; M81.0 Age-related osteoporosis without current pathological fracture | CPT/HCPCS: 77080 ==

== ENCOUNTER → 2023-01-03 09:11 | Outpatient (CLI) | payer OTHER, SELFPAY ==
[2023-01-03 10:23] LABS: Hemoglobin A1C% w Est Avg Glu 4.8 % (4.0-6.0)
[2023-01-03 10:38] LABS: Alanine Aminotransferase 29 IU/L (<35); Albumin 3.9 g/dL (3.5-5.0); Albumin Globulin Ratio 1.3 (1.0-2.8); Alkaline Phosphatase 50 U/L (38-126); Aspartate Aminotransferase 38 IU/L (14-36); BUN Creatinine Ratio 21.9 (6-22); Bilirubin Total 0.5 mg/dL (0.2-1.3); Blood Urea Nitrogen 14 mg/dL (7-17); Calcium 9.1 mg/dL (8.4-10.2); Carbon Dioxide 32 mmol/L (22-32); Chloride 101 mmol/L (98-107); Cholesterol 193 mg/dL (140-199); Estimated Glomerular Filt Rate > 60 mL/min (>60); Globulin 3.1 g/dL (1.7-4.1); Glucose 67 mg/dL (80-110); HDL Cholesterol 67 mg/dL (40-60); HEMOLYSIS < 15 (0-50); LDL Cholesterol Calculated 111 mg/dL (<100); Potassium 4.1 mmol/L (3.4-5.1); Sodium 139 mmol/L (137-145); Triglycerides 76 mg/dL (35-150)
[2023-01-04 06:00] LABS: Valproic Acid (Depakene) Total 78 ug/mL (50-100)
== END ==
PROVIDERS: PCP Nurse Practitioner Family; Referring Provider Psychiatry & Neurology Psychiatry; Visit Provider Psychiatry & Neurology Psychiatry
DX: Z79.899 Other long term (current) drug therapy (principal); E78.00 Pure hypercholesterolemia, unspecified
CPT/HCPCS: 36415; 80053; 80061; 80164; 83036; 84443

== ENCOUNTER → 2023-05-15 09:22 | Outpatient (CLI) | payer OTHER, SELFPAY ==
[2023-05-15 10:27] LABS: Add Manual Diff / Slide Review NO; Basophils Absolute Auto 0 /uL (0-100); Basophils Percent Auto 0.9 % (0-2); Eosinophils Absolute Auto 100 /uL (0-450); Eosinophils Percent Auto 1.5 % (2-4); Hematocrit 44.3 % (36-46); Hemoglobin 15.1 g/dL (12.0-16.0); Lymphocytes Absolute Auto 1600 /uL (1100-4500); Mean Corpuscular HGB Conc 34.1 % (30-36); Mean Corpuscular Hemoglobin 31.9 PG (26-34); Mean Corpuscular Volume 93.5 fL (80-100); Monocytes Absolute Auto 600 /uL (0-900); Monocytes Percent Auto 13.2 % (3-14); Neutrophils Absolute Auto 2300 /uL (1500-7000); Neutrophils Percent Auto 49.4 % (50-75); Platelet Count 164 X10^3/uL (150-400); Red Blood Cell Count 4.73 X10^6/uL (4.0-5.2); White Blood Cell Count 4.6 X10^3/uL (4.5-11.0)
[2023-05-15 10:55] LABS: Alanine Aminotransferase 37 IU/L (<35); Albumin Globulin Ratio 1.2 (1.0-2.8); Alkaline Phosphatase 55 U/L (38-126); Aspartate Aminotransferase 44 IU/L (14-36); BUN Creatinine Ratio 23.6 (6-22); Bilirubin Total 0.5 mg/dL (0.2-1.3); Blood Urea Nitrogen 17 mg/dL (7-17); Calcium 9.9 mg/dL (8.4-10.2); Carbon Dioxide 30 mmol/L (22-32); Chloride 102 mmol/L (98-107); Cholesterol 195 mg/dL (140-199); Estimated Glomerular Filt Rate > 60 mL/min (>60); Globulin 3.4 g/dL (1.7-4.1); Glucose 78 mg/dL (80-110); HDL Cholesterol 63 mg/dL (40-60); HEMOLYSIS < 15 (0-50); Iron 92 ug/dL (37-170); LDL Cholesterol Calculated 116 mg/dL (<100); Sodium 139 mmol/L (137-145); Total Protein 7.4 g/dL (6.3-8.2); Triglycerides 80 mg/dL (35-150)
[2023-05-15 11:01] LABS: Vitamin D 25 Hydroxy (D3) 78.5 ng/mL (30.0-100.0)
[2023-05-15 11:04] LABS: Total Iron Binding Capacity 302 ug/dL (265-497)
[2023-05-15 11:28] LABS: Thyroid Stimulating Hormone 1.05 uIU/mL (0.47-4.68)
[2023-05-15 11:58] LABS: Folate > 20.0 ng/mL (2.76-20.0); Vitamin B12 935 pg/mL (239-931)
[2023-05-15 12:39] LABS: Hemoglobin A1C% w Est Avg Glu 4.9 % (4.0-6.0)
[2023-05-16 01:33] LABS: Ferritin 82 ng/mL (11-264)
[2023-05-22 08:08] LABS: Vitamin B1 248.6 nmol/L (66.5-200.0)
== END ==
LOC: LAB 09:25
PROVIDERS: PCP Nurse Practitioner Family; Referring Provider Surgery; Visit Provider Surgery
DX: E63.9 Nutritional deficiency, unspecified (principal); K90.9 Intestinal malabsorption, unspecified; Z98.84 Bariatric surgery status
CPT/HCPCS: 36415; 80053; 80061; 82306; 82607; 82728; 82746; 83036; 83540; 83550; 84425; 84443; 85025

== ENCOUNTER → 2024-02-07 09:04 | Outpatient (CLI) | payer OTHER, SELFPAY ==
[2024-02-07 10:09] LABS: Hematocrit 43.8 % (36-46); Hemoglobin 14.9 g/dL (12.0-16.0); Mean Corpuscular HGB Conc 34.1 % (30-36); Mean Corpuscular Hemoglobin 31.8 PG (26-34); Mean Corpuscular Volume 93.1 fL (80-100); Platelet Count 185 X10^3/uL (150-400); Red Blood Cell Count 4.71 X10^6/uL (4.0-5.2); White Blood Cell Count 3.8 X10^3/uL (4.5-11.0)
[2024-02-07 10:39] LABS: Alanine Aminotransferase 20 IU/L (<35); Albumin 4.2 g/dL (3.5-5.0); Albumin Globulin Ratio 1.4 (1.0-2.8); Alkaline Phosphatase 62 U/L (38-126); Aspartate Aminotransferase 33 IU/L (14-36); Bilirubin Total 0.5 mg/dL (0.2-1.3); Blood Urea Nitrogen 14 mg/dL (7-17); Carbon Dioxide 29 mmol/L (22-32); Chloride 104 mmol/L (98-107); Cholesterol 217 mg/dL (140-199); Estimated Glomerular Filt Rate > 60 mL/min (>60); Globulin 2.9 g/dL (1.7-4.1); Glucose 73 mg/dL (80-110); HDL Cholesterol 72 mg/dL (40-60); HEMOLYSIS < 15 (0-50); LDL Cholesterol Calculated 128 mg/dL (<100); Potassium 4.5 mmol/L (3.4-5.1); Sodium 138 mmol/L (137-145); Total Protein 7.1 g/dL (6.3-8.2); Triglycerides 86 mg/dL (35-150)
[2024-02-07 10:51] LABS: Vitamin D 25 Hydroxy (D3) 80.4 ng/mL (30.0-100.0)
[2024-02-07 11:14] LABS: Thyroid Stimulating Hormone 1.02 uIU/mL (0.47-4.68)
[2024-02-07 11:49] LABS: Folate > 20.0 ng/mL (2.76-20.0); Vitamin B12 868 pg/mL (239-931)
[2024-02-07 15:34] LABS: HEMOLYSIS < 15 (0-50); Iron 119 ug/dL (37-170)
[2024-02-07 15:44] LABS: Percent Iron Saturation 36 % (15-50); Total Iron Binding Capacity 329 ug/dL (265-497); Transferrin 257 mg/dL (206-381)
[2024-02-07 16:09] LABS: Ferritin 76 ng/mL (11-264)
== END ==
PROVIDERS: PCP Nurse Practitioner Family; Referring Provider Surgery; Visit Provider Surgery
DX: E46 Unspecified protein-calorie malnutrition (principal); E55.9 Vitamin D deficiency, unspecified
CPT/HCPCS: 36415; 80053; 80061; 82306; 82607; 82728; 82746; 83036; 83540; 83550; 84425; 84443; 85027

== ENCOUNTER → 2024-02-12 09:08 | Outpatient (CLI) | payer OTHER, SELFPAY ==
[2024-02-12 10:50] LABS: C-Reactive Protein Quant < 0.5 mg/dL (<1.0)
[2024-02-12 11:42] LABS: Erythrocyte Sedimentation Rate 3 MM/HR (0-20)
== END ==
PROVIDERS: PCP Nurse Practitioner Family; Referring Provider Internal Medicine Gastroenterology; Visit Provider Internal Medicine Gastroenterology
DX: K59.09 Other constipation (principal)
CPT/HCPCS: 36415; 83516; 85651; 86140

== ENCOUNTER → 2024-03-20 09:37 | Outpatient (CLI) | payer OTHER, SELFPAY ==
--- NOTE | 2024-03-20 09:38 | DI.RAD.S_ITS ---
PROCEDURE: XR CERVICAL SPINE 4V OR 5V INDICATIONS: NECK PAIN TECHNIQUE: 5 views of the cervical spine acquired. COMPARISON: None. FINDINGS: Bones: There are mild degenerative changes, with disc space height loss, arthropathy, and osteophytes. No acute traumatic subluxation or fracture seen. No high-grade neural foraminal narrowing on oblique images. Possible mild narrowing is seen at the right C5-C6 neural foramen. Soft tissues: No pathologic prevertebral soft tissue swelling IMPRESSION: Mild spondylosis. If there is high concern for further derangement, consider MRI evaluation. Dictated by: Jose Zamora M.D. on 03/20/2024 at 10:49 Approved by: Jose Zamora M.D. on 03/20/2024 at 10:50
== END ==
PROVIDERS: PCP Nurse Practitioner Family; Referring Provider Physical Medicine & Rehabilitation; Visit Provider Physical Medicine & Rehabilitation
DX: M47.812 Spondylosis without myelopathy or radiculopathy, cervical region (principal); M54.2 Cervicalgia; N88.8 Other specified noninflammatory disorders of cervix uteri; N87.9 Dysplasia of cervix uteri, unspecified
CPT/HCPCS: 72050

== ENCOUNTER 2024-06-11 09:10 | Outpatient (CLI) | payer OTHER, SELFPAY ==
[2024-06-11] VITALS (8 sets, daily range): BP systolic 110–141; BP diastolic 60–74; PULSE 48–56; RESP 15–18; TEMP 36.4; O2SAT 97–100
--- NOTE | 2024-06-11 09:11 | DI.RAD.S_ITS ---
PROCEDURE: PAIN C/T INTERLAMINAR INJECT INDICATIONS: C 6/7 TL JAYA COMPARISON: None. FINDINGS/IMPRESSION: Fluoroscopic spot filming was performed to verify placement of spinal needles at the C6-C7 level(s), as labeled on the films. Appropriate location(s) of the needle tip(s) was confirmed by injection of iodinated contrast. Dictated by: Henry Drake M.D. on 06/11/2024 at 11:01 Approved by: Henry Drake M.D. on 06/11/2024 at 11:16
[2024-06-11] MEDS: MIDAZOLAM 2 MG/2 ML VIAL IV (10:12)
[2024-06-11] MEDS: BUPIVACAINE 0.25% (PF) VIAL 2 ML INJ (10:17)
[2024-06-11] MEDS: DEXAMETHASONE 10 MG/ML VIAL 20 MG INJ (10:17)
[2024-06-11] MEDS: iopamidoL 15 ML VIAL 3 ML INJ (10:18)
--- NOTE | 2024-06-11 10:34 | P.PCN_ITS ---
Date/Time/Diagnoses Date of procedure: 06/11/24 Time of procedure: 10:35 Pre-procedure diagnosis: 1. CERVICAL STENOSIS, 2. CERVICAL HNP WITH UPPER EXTREMITY RADICULAR FEATURES Post-procedure diagnosis: same Procedure Notes Procedure: 1. FLUORSCOPICALLY GUIDED CONTRAST CONTROLLED INTERLAMINAR EPIDURAL STEROID INJECTION - C6/7 TL JAYA Indications: [facility] is referred by ALBERTA Flowers for treatment of Cervical HNP with Upper Extremity Paresthesias. Physician: Anton Capps Total Fluoroscopy time (seconds): 29 Total sedation minutes: 16 Complications: none Procedure in detail & Post-procedure care: FINDINGS Cervical Stenosis due to disc deterioration and nerve root irritation and nerve root irritation DESCRIPTION OF PROCEDURE Fluoroscopically guided, contrast-controlled C6/7 translaminar epidural steroid injection with conscious sedation. Following review of allergy and review of potential side effects and complications, including, but not necessarily limited to, infection, allergic reaction, local tissue breakdown, temporary as well as permanent nerve injury, stroke, paralysis, and possible , the patient indicated that patient understood and agreed to proceed. An informed consent document was signed by the patient, witnessed by a nurse, and placed in the patient's chart. Additionally, other treatment options including modalities, medications, and physical therapy were reviewed with the patient. After review of previous anaesthesic history and IV conscious sedation the patient was deemed safe to proceed with today?s procedure with IV conscious sedation as ASA class II designation. Safety time-out was performed to confirm patient ID, procedure to be performed and site of procedure. IV sedation was accomplished with a combination of 2mg of Versed administered by the RN after DO order, titrated to patient comfort during the course of the procedure while the patient remained responsive to all verbal commands. In the prone position, following sterile prep and drape of the cervical region, the C6/7 translaminar space was identified fluoroscopically. The skin was anesthetized via a 25-gauge 1.5-inch needle with 1% lidocaine solution. At this point, a 25-gauge, 2.5-inch short bevel spinal needle was atraumatically introduced and advanced under fluoroscopic guidance into epidural space at the C6/7 translaminar space. Depth was confirmed on lateral view. Radiological data, including multiple fluoroscopic views of the cervical spine, reveal a spinal needle at the C6/7 translaminar space. Lateral views then show placement of the needle in the epidural space. Subsequent views show contrast material flowing superiorly and inferiorly in the epidural space. DSA fluoroscopy with live contrast injection, once again, confirmed no vascular or intrathecal uptake. At this point, using loss of resistance technique with saline and air, the epidural space was entered. Following negative aspiration, injection of approximately 1.5 cc of Isovue-200 with live fluoroscopy in the AP view confirmed epidural flow in the epidural space without vascular or intrathecal uptake observed. Subsequently, a test dose of 1 cc of 1% lidocaine solution was injected and patient was observed for two minutes without signs or symptoms of complications, including abdominal pain, shortness of breath, bilateral upper or lower extremity weakness, nausea and vomiting, prior to steroid injection. At this point, 2cc or 20mg of dexamethasone was then injected without incident. The patient tolerated the procedure well without signs or symptoms of comp lications prior to being transferred to the recovery area for further monitoring, The patient was then transferred to the recovery area where they were observed for an appropriate period of time after the injection. The patient reported a VAS score of 6 prior to the procedure and a post-procedure VAS of 0. POST OP INSTRUCTIONS The patient was provided a Pain Log to continue to record their response to the target-specific procedure prior to follow-up visit with the referring provider. Additionally, specific post-injection care instructions and a contact number to our office were provided if concerns arise regarding possible complications associated with the procedure are suspected.
== END 2024-06-11 10:48 | disposition home or self-care (01) ==
LOC: RAD 09:11
PROVIDERS: PCP Nurse Practitioner Family; Referring Provider Physical Medicine & Rehabilitation; Visit Provider Physical Medicine & Rehabilitation
DX: M48.02 Spinal stenosis, cervical region (principal); M50.123 Cervical disc disorder at C6-C7 level with radiculopathy
CPT/HCPCS: 62321; 99152; J1100; J2250; J3490

== ENCOUNTER → 2024-07-18 10:58 | Outpatient (CLI) | payer OTHER, SELFPAY ==
[2024-07-18 12:25] LABS: Add Manual Diff / Slide Review NO; Basophils Absolute Auto 0 /uL (0-100); Basophils Percent Auto 0.9 % (0-2); Eosinophils Absolute Auto 100 /uL (0-450); Eosinophils Percent Auto 1.6 % (2-4); Hematocrit 44.2 % (36-46); Hemoglobin 14.7 g/dL (12.0-16.0); Lymphocytes Absolute Auto 1900 /uL (1100-4500); Lymphocytes Percent Auto 39.3 % (25-40); Mean Corpuscular HGB Conc 33.3 % (30-36); Mean Corpuscular Hemoglobin 31.8 PG (26-34); Mean Corpuscular Volume 95.5 fL (80-100); Monocytes Absolute Auto 700 /uL (0-900); Monocytes Percent Auto 13.9 % (3-14); Neutrophils Absolute Auto 2100 /uL (1500-7000); Neutrophils Percent Auto 44.3 % (50-75); Platelet Count 224 X10^3/uL (150-400); Red Blood Cell Count 4.63 X10^6/uL (4.0-5.2); Red Cell Distribution Width 13.9 % (11.6-14.8); White Blood Cell Count 4.7 X10^3/uL (4.5-11.0)
[2024-07-18 12:48] LABS: Alanine Aminotransferase 20 IU/L (<35); Albumin 4.1 g/dL (3.5-5.0); Albumin Globulin Ratio 1.5 (1.0-2.8); Alkaline Phosphatase 60 U/L (38-126); Aspartate Aminotransferase 32 IU/L (14-36); BUN Creatinine Ratio 33.3 (6-22); Bilirubin Total 0.5 mg/dL (0.2-1.3); Blood Urea Nitrogen 29 mg/dL (7-17); Calcium 10.4 mg/dL (8.4-10.2); Carbon Dioxide 28 mmol/L (22-32); Chloride 101 mmol/L (98-107); Estimated Glomerular Filt Rate > 60 mL/min (>60); Globulin 2.8 g/dL (1.7-4.1); Glucose 84 mg/dL (80-110); HEMOLYSIS < 15 (0-50); Potassium 5.3 mmol/L (3.4-5.1); Sodium 137 mmol/L (137-145); Total Protein 6.9 g/dL (6.3-8.2)
[2024-07-18 13:15] LABS: TSH w/ Reflex to FT4 1.21 uIU/mL (0.47-4.68)
[2024-07-18 14:52] LABS: Vitamin D 25 Hydroxy (D3) 73.8 ng/mL (30.0-100.0)
== END ==
PROVIDERS: PCP Nurse Practitioner Family; Visit Provider Psychiatry & Neurology Psychiatry
DX: F31.81 Bipolar II disorder (principal); F50.811 Binge eating disorder, moderate; F41.1 Generalized anxiety disorder
CPT/HCPCS: 36415; 80053; 82306; 84443; 85025

== ENCOUNTER → 2024-08-13 14:48 | Outpatient (CLI) | payer OTHER, SELFPAY ==
[2024-08-15 04:10] LABS: Valproic Acid (Depakene) Total 46 ug/mL (50-100)
== END ==
PROVIDERS: PCP Nurse Practitioner Family; Referring Provider Psychiatry & Neurology Psychiatry; Visit Provider Psychiatry & Neurology Psychiatry
DX: F31.81 Bipolar II disorder (principal); F50.811 Binge eating disorder, moderate; F41.1 Generalized anxiety disorder
CPT/HCPCS: 36415; 80164

== ENCOUNTER → 2024-09-18 15:56 | Outpatient (CLI) | payer OTHER, SELFPAY ==
[2024-09-20 06:36] LABS: Valproic Acid (Depakene) Total 65 ug/mL (50-100)
== END ==
PROVIDERS: PCP Nurse Practitioner Family; Referring Provider Nurse Practitioner Family; Visit Provider Psychiatry & Neurology Psychiatry
DX: F31.81 Bipolar II disorder (principal); F50.811 Binge eating disorder, moderate; F41.1 Generalized anxiety disorder
CPT/HCPCS: 36415; 80164

== ENCOUNTER 2024-10-08 14:30 | Outpatient (RCR) | payer OTHER, SELFPAY ==
--- NOTE | 2024-08-07 17:45 | PT.OIE ---
Current Diagnoses Radiculopathy, cervical region (08/07/24) Past Medical History (Last Reviewed 03/25/24 @ 11:39 by Anton Capps DO) Anxiety Bipolar 1 disorder Cervical radiculopathy at C6 Depression Depression GERD (gastroesophageal reflux disease) HLD (hyperlipidemia) HTN (hypertension) Hypothyroidism Insomnia Obesity (BMI 30-39.9) Obstructive sleep apnea of adult Poor sleep hygiene Pulmonary embolism, bilateral (~03/2011) Snoring Past Surgical History (Last Reviewed 03/25/24 @ 11:39 by Anton Capps DO) H/O LEEP (02/20/17) Hx of varicose vein stripping Status post laminectomy (~1989) Visit Care Team Role Provider Type ALBERTA Perez FNP-C Primary Care Provider Non-Staff Specialty: Family Practice Address: [address] [place] [address], [address], [place], [address] Email: Anton Capps DO Attending Provider Physician Referring Provider Specialty: Interventional Radiology Physiatry Pain Management Address: [facility] [place], [address] Email: [email or web address] Physical Therapy Initial Evaluation PT-OP-A Visit Information Start: 08/07/24 17:09 Freq: Status: Active Protocol: Document 08/07/24 13:45 DCW (Rec: 08/07/24 17:36 [facility] [id number]) Out-Patient Physical Therapy Visit Information Visit Information Visit Type Initial Evaluation Visit Start Time 13:45 Visit Stop Time 14:30 Visit Number 1 Number of DIRECT MAIL CLERK Visits 0 Evaluation Information Evaluation Date 08/07/24 PT-OP-B Current Condition Start: 08/07/24 17:09 Freq: Status: Active Protocol: Document 08/07/24 13:45 DCW (Rec: 08/07/24 17:36 DCW [id number]) Current Condition History of Current Condition Onset Date Four year history Current Complaints Left-sided mid back pain History of Current Condition Pt is a 64 year old female presenting with a four-year history of left mid-back pain. Pt reports she has been to therapy multiple times for this pain, with a focus on strengthening her back and shoulder muscles, but it's really difficult because it tends to increase all of her pain. Recently began seeing Dr Capps for pain management, who feels symptoms are actually radiating from her cervical spine. Did have an injection in her cervical spine, pt notes there was minimal benefit. Pt comes in to PT from the [facility], so is hoping to only come once a week and build up a good HEP that doesn't increase her pain . Referral also suggested trial of cervical traction Prior Treatments and Tests Cervical X-ray: IMPRESSION: Mild spondylosis. If there is high concern for further derangement, consider MRI evaluation. per Elizabeth Hogue. on 03/20/2024 Cervical MRI: IMPRESSION: Early degenerative changes most notable at C5-6 as above. Alisa Nuñez M.D. on 2021 PT-OP-C Subjective Start: 08/07/24 17:09 Freq: Status: Active Protocol: Document 08/07/24 13:45 DCW (Rec: 08/07/24 17:36 DCW [id number]) OP-PT Subjective Patient Comments Patient Comments I guess I'm ready to try this (PT) again. Patient Questionnaires Neck Disability Index NDI Score 17/50 = 34% Neck Disability Index Impairment 20 to 39% Impaired (Score 10- 19) PT-OP-F Manual Assessment Start: 08/07/24 17:09 Freq: Status: Active Protocol: Document 08/07/24 13:45 DCW (Rec: 08/07/24 17:36 DCW [id number]) Manual Assessments Soft Tissue Assessment Soft Tissue Mobility Assessment Mild tone in upper trap and parascapular musculature, L>R Joint Mobility Assessment Joint Mobility Assessment Mild CW rotation at C4 PT-OP-K Range of Motion Start: 08/07/24 17:09 Freq: Status: Active Protocol: Document 08/07/24 13:45 DCW (Rec: 08/07/24 17:36 DCW [id number]) Cervical Spine Range of Motion Cervical Spine Active Degrees Testing Position Sitting Flexion 55 Extension 45 Rotation Left 66 Rotation Right 73 Lateral Flexion Left 50 Lateral Flexion Right 45 ROM Limitations Bony Restriction PT-OP-L Special Tests Start: 08/07/24 17:09 Freq: Status: Active Protocol: Document 08/07/24 13:45 DCW (Rec: 08/07/24 17:36 DCW [id number]) Special Tests Cervical Spine Special Tests Slump Test Results Negative Traction Test Results Decreased symptoms Spurling's Test Test Results Positive left lateral flexion Passive Neck Flexion Test Results Negative Foraminal Compression Test Results Negative PT-OP-Q Treatments Start: 08/07/24 17:09 Freq: Status: Active Protocol: Document 08/07/24 13:45 DCW (Rec: 08/07/24 17:36 DCW [id number]) Therapeutic Exercises Supine Exercises Chin Tuck Supine Exercise Name Chin Tuck/Head Lift Sitting Exercises Lateral Flexion Sitting Exercise Name Isometric cervical lateral flexion vs T-band Side bilateral Resistance Lv 1 Extension Sitting Exercise Name Isometric cervical extension vs T-band Resistance Lv 1 Manual Therapy Treatment Consent Patient gave verbal consent for manual Yes treatment Other Other Manual Treatments WMW - Resisted left cervical rotation PT-OP-T Assessment and Plan Start: 08/07/24 17:09 Freq: Status: Active Protocol: Document 08/07/24 13:45 DCW (Rec: 08/07/24 17:45 DCW [id number]) Physical Therapy Assessment Rehab Potential Rehabilitation Potential Good Evaluation Complexity Number of Personal Factors/Comorbidities 3 or More Number of Body Systems Impaired 4 or More Clinical Presentation at Evaluation Unstable Impairments Impairments Activity Tolerance,Functional Activities,Functional Mobility ,Pain,ROM Goals Two Impairment Left Cervical rotation limited to 66? Electric Utility Lineworker Goal (LTG) Pt to demonstrate improved cervical rotation to >75? in order to improve functional mobility and decrease radicular pain LTG Duration 10/07/24 One Impairment Pt does not have an appropriate home exercise program Short Term Goal (STG) Pt to be independent and compliant with an appropriate HEP STG Duration 09/06/24 Assessment Summary Assessment Pt presents with signs and symptoms consistent with referring diagnosis. Pt exhibits shoulder and left upper back pain which may be associated with disc bulge found on her MRI. Does demonstrate increased symptoms with cervical compression when in left lateral flexion, decreased left rotation, and improved symptoms with cervical traction. Pt additionally found to have slight rotation of C4, which responded well to manual treatment. Manual traction helped, will likely attempt mechanical traction during follow-up visits. Continue with STM, cervical strengthening, flexibility/ROM , and mobilization of joints. Physical Therapy Plan Frequency and Duration Frequency of Treatment 1x/Week Plan of Care Start Date 08/07/24 Plan of Care End Date 10/07/24 Therapeutic Interventions Therapeutic Interventions Home Exercise Program,Joint Mobilizations,Manual Therapy, Neuromuscular Re-education, Patient/Caregiver Education, Self-Care/Home Management,Soft Tissue Mobilization, Therapeutic Activities, Therapeutic Exercises Modalities Cold Pack/Ice Massage,Electric Stimulation,Hot Packs, Traction- Mechanical, Ultrasound Next Visit Focus/Plan Next Note Type Treatment Note Next Visit Plan STM, joint mobs, strengthening , trial of mechanical traction
--- NOTE | 2024-08-07 17:46 | PT.OPPOC ---
Physical, Occupational & Speech Therapy At [facility] Current Diagnoses Radiculopathy, cervical region (08/07/24) Visit Care Team Role Provider Type ALBERTA Perez FNP-C Primary Care Provider Non-Staff Specialty: Family Practice Address: [address] [place] [address], [address], [place], [address] Email: Anton Capps DO Attending Provider Physician Referring Provider Specialty: Interventional Radiology Physiatry Pain Management Address: [address] [place], [address] Email: [email or web address] Plan Of Care PT-OP-B Current Condition Start: 08/07/24 17:09 Freq: Status: Active Protocol: Document 08/07/24 13:45 DCW (Rec: 08/07/24 17:36 DCW [id number]) Current Condition History of Current Condition Onset Date Four year history Current Complaints Left-sided mid back pain History of Current Condition Pt is a 64 year old female presenting with a four-year history of left mid-back pain. Pt reports she has been to therapy multiple times for this pain, with a focus on strengthening her back and shoulder muscles, but it's really difficult because it tends to increase all of her pain. Recently began seeing Dr Capps for pain management, who feels symptoms are actually radiating from her cervical spine. Did have an injection in her cervical spine, pt notes there was minimal benefit. Pt comes in to PT from the [facility], so is hoping to only come once a week and build up a good HEP that doesn't increase her pain . Referral also suggested trial of cervical traction Prior Treatments and Tests Cervical X-ray: IMPRESSION: Mild spondylosis. If there is high concern for further derangement, consider MRI evaluation. per Elizabeth Hogue on 03/20/2024 Cervical MRI: IMPRESSION: Early degenerative changes most notable at C5-6 as above. Alisa Nuñez M.D. on 2021 PT-OP-T Assessment and Plan Start: 08/07/24 17:09 Freq: Status: Active Protocol: Document 08/07/24 13:45 DCW (Rec: 08/07/24 17:45 DCW [id number]) Physical Therapy Assessment Rehab Potential Rehabilitation Potential Good Evaluation Complexity Number of Personal Factors/Comorbidities 3 or More Number of Body Systems Impaired 4 or More Clinical Presentation at Evaluation Unstable Impairments Impairments Activity Tolerance,Functional Activities,Functional Mobility ,Pain,ROM Goals Two Impairment Left Cervical rotation limited to 66? Prison Goal (LTG) Pt to demonstrate improved cervical rotation to >75? in order to improve functional mobility and decrease radicular pain LTG Duration 10/07/24 One Impairment Pt does not have an appropriate home exercise program Short Term Goal (STG) Pt to be independent and compliant with an appropriate HEP STG Duration 09/06/24 Assessment Summary Assessment Pt presents with signs and symptoms consistent with referring diagnosis. Pt exhibits shoulder and left upper back pain which may be associated with disc bulge found on her MRI. Does demonstrate increased symptoms with cervical compression when in left lateral flexion, decreased left rotation, and improved symptoms with cervical traction. Pt additionally found to have slight rotation of C4, which responded well to manual treatment. Manual traction helped, will likely attempt mechanical traction during follow-up visits. Continue with STM, cervical strengthening, flexibility/ROM , and mobilization of joints. Physical Therapy Plan Frequency and Duration Frequency of Treatment 1x/Week Plan of Care Start Date 08/07/24 Plan of Care End Date 10/07/24 Therapeutic Interventions Therapeutic Interventions Home Exercise Program,Joint Mobilizations,Manual Therapy, Neuromuscular Re-education, Patient/Caregiver Education, Self-Care/Home Management,Soft Tissue Mobilization, Therapeutic Activities, Therapeutic Exercises Modalities Cold Pack/Ice Massage,Electric Stimulation,Hot Packs, Traction- Mechanical, Ultrasound Next Visit Focus/Plan Next Note Type Treatment Note Next Visit Plan STM, joint mobs, strengthening , trial of mechanical traction Plan of Care Dates Plan of Care Start Date 08/07/24 Plan of Care End Date 10/07/24 Electronically Signed by: Erickson Templeton, PT 08/07/24 4583 If you are in agreement with this Plan of Care, please return a signed and dated copy. I have reviewed this Plan of Care and certify that the skilled therapy services above are required to meet the patient?s needs. Physician Signature Date Printed Name and Credentials Clinical Instructor Signature Printed Name and Credentials
--- NOTE | 2024-08-13 14:35 | PT.OTN ---
Current Diagnoses Radiculopathy, cervical region (08/13/24) Physical Therapy Treatment Note PT-OP-A Visit Information Start: 08/07/24 17:09 Freq: Status: Active Protocol: Document 08/13/24 13:45 DCW (Rec: 08/13/24 14:35 DCW [id number]) Out-Patient Physical Therapy Visit Information Visit Information Visit Type Treatment Note Visit Start Time 13:45 Visit Stop Time 14:30 Visit Number 2 Number of RESEARCH MICROBIOLOGIST Visits 0 Evaluation Information Evaluation Date 08/07/24 PT-OP-B Current Condition Start: 08/07/24 17:09 Freq: Status: Active Protocol: Document 08/07/24 13:45 DCW (Rec: 08/07/24 17:36 DCW [id number]) Current Condition History of Current Condition Onset Date Four year history Current Complaints Left-sided mid back pain History of Current Condition Pt is a 64 year old female presenting with a four-year history of left mid-back pain. Pt reports she has been to therapy multiple times for this pain, with a focus on strengthening her back and shoulder muscles, but it's really difficult because it tends to increase all of her pain. Recently began seeing Dr Capps for pain management, who feels symptoms are actually radiating from her cervical spine. Did have an injection in her cervical spine, pt notes there was minimal benefit. Pt comes in to PT from the [facility], so is hoping to only come once a week and build up a good HEP that doesn't increase her pain . Referral also suggested trial of cervical traction Prior Treatments and Tests Cervical X-ray: IMPRESSION: Mild spondylosis. If there is high concern for further derangement, consider MRI evaluation. per Elizabeth Hogue. on 03/20/2024 Cervical MRI: IMPRESSION: Early degenerative changes most notable at C5-6 as above. Alisa Nuñez M.D. on 2021 PT-OP-C Subjective Start: 08/07/24 17:09 Freq: Status: Active Protocol: Document 08/13/24 13:45 DCW (Rec: 08/13/24 14:35 UTW [id number]) OP-PT Subjective Patient Comments Patient Comments Today, I'm really sore in my upper back, just been driving around a lot. I've been doing the exercises, they're going fine, pretty straight-forward. Does note she felt really good following her last visit. PT-OP-F Manual Assessment Start: 08/07/24 17:09 Freq: Status: Active Protocol: Document 08/07/24 13:45 DCW (Rec: 08/07/24 17:36 DCW [id number]) Manual Assessments Soft Tissue Assessment Soft Tissue Mobility Assessment Mild tone in upper trap and parascapular musculature, L>R Joint Mobility Assessment Joint Mobility Assessment Mild CW rotation at C4 PT-OP-K Range of Motion Start: 08/07/24 17:09 Freq: Status: Active Protocol: Document 08/07/24 13:45 DCW (Rec: 08/07/24 17:36 DCW [id number]) Cervical Spine Range of Motion Cervical Spine Active Degrees Testing Position Sitting Flexion 55 Extension 45 Rotation Left 66 Rotation Right 73 Lateral Flexion Left 50 Lateral Flexion Right 45 ROM Limitations Bony Restriction PT-OP-L Special Tests Start: 08/07/24 17:09 Freq: Status: Active Protocol: Document 08/07/24 13:45 DCW (Rec: 08/07/24 17:36 DCW [id number]) Special Tests Cervical Spine Special Tests Slump Test Results Negative Traction Test Results Decreased symptoms Spurling's Test Test Results Positive left lateral flexion Passive Neck Flexion Test Results Negative Foraminal Compression Test Results Negative PT-OP-Q Treatments Start: 08/07/24 17:09 Freq: Status: Active Protocol: Document 08/13/24 13:45 DCW (Rec: 08/13/24 14:35 DCW [id number]) Therapeutic Exercises Supine Exercises Upper Trap Supine Exercise Name Supine upper trap stretch Side bilateral Serratus Punch Supine Exercise Name Serratus Punch Side bilateral Manual Therapy Treatment Consent Patient gave verbal consent for manual Yes treatment Soft Tissue Mobilization Cervical Body Location UT, Suboccipitals, Scalenes Mobilization Type Strumming,Sustained Pressure Manual Traction Cervical Body Position Supine Other Other Manual Treatments WMW - Resisted left cervical rotation PT-OP-R Modalities Start: 08/07/24 17:09 Freq: Status: Active Protocol: Document 08/13/24 13:45 DCW (Rec: 08/13/24 14:35 DCW [id number]) Spinal Traction Traction Treatment Cervical Method Mechanical Patient Position Hooklying Force Applied (Pounds) 10 Heating Pad Applied No PT-OP-T Assessment and Plan Start: 08/07/24 17:09 Freq: Status: Active Protocol: Document 08/13/24 13:45 DCW (Rec: 08/13/24 14:35 DCW [id number]) Physical Therapy Assessment Impairments Impairments Activity Tolerance,Functional Activities,Functional Mobility ,Pain,ROM Goals Two Impairment Left Cervical rotation limited to 66? Snf Goal (LTG) Pt to demonstrate improved cervical rotation to >75? in order to improve functional mobility and decrease radicular pain LTG Duration 10/07/24 One Impairment Pt does not have an appropriate home exercise program Short Term Goal (STG) Pt to be independent and compliant with an appropriate HEP STG Duration 09/06/24 Assessment Summary Assessment Very good response to treatment, pt very happy with mechanical traction, considering obtaining one for herself. Tolerating treatment very well. Physical Therapy Plan Frequency and Duration Frequency of Treatment 1x/Week Plan of Care Start Date 08/07/24 Plan of Care End Date 10/07/24 Therapeutic Interventions Therapeutic Interventions Home Exercise Program,Joint Mobilizations,Manual Therapy, Neuromuscular Re-education, Patient/Caregiver Education, Self-Care/Home Management,Soft Tissue Mobilization, Therapeutic Activities, Therapeutic Exercises Modalities Cold Pack/Ice Massage,Electric Stimulation,Hot Packs, Traction- Mechanical, Ultrasound Next Visit Focus/Plan Next Note Type Treatment Note Next Visit Plan STM, joint mobs, strengthening , trial of mechanical traction
--- NOTE | 2024-08-28 16:51 | PT.OTN ---
Current Diagnoses Radiculopathy, cervical region (08/28/24) Physical Therapy Treatment Note PT-OP-A Visit Information Start: 08/07/24 17:09 Freq: Status: Active Protocol: Document 08/28/24 16:15 DCW (Rec: 08/28/24 16:51 DCW [id number]) Out-Patient Physical Therapy Visit Information Visit Information Visit Type Treatment Note Visit Start Time 16:15 Visit Stop Time 16:45 Visit Number 3 Number of MILL HELPER Visits 0 Evaluation Information Evaluation Date 08/07/24 PT-OP-B Current Condition Start: 08/07/24 17:09 Freq: Status: Active Protocol: Document 08/07/24 13:45 DCW (Rec: 08/07/24 17:36 DCW [id number]) Current Condition History of Current Condition Onset Date Four year history Current Complaints Left-sided mid back pain History of Current Condition Pt is a 64 year old female presenting with a four-year history of left mid-back pain. Pt reports she has been to therapy multiple times for this pain, with a focus on strengthening her back and shoulder muscles, but it's really difficult because it tends to increase all of her pain. Recently began seeing Dr Capps for pain management, who feels symptoms are actually radiating from her cervical spine. Did have an injection in her cervical spine, pt notes there was minimal benefit. Pt comes in to PT from the [facility], so is hoping to only come once a week and build up a good HEP that doesn't increase her pain . Referral also suggested trial of cervical traction Prior Treatments and Tests Cervical X-ray: IMPRESSION: Mild spondylosis. If there is high concern for further derangement, consider MRI evaluation. per Elizabeth Hogue. on 03/20/2024 Cervical MRI: IMPRESSION: Early degenerative changes most notable at C5-6 as above. Alisa Nuñez M.D. on 2021 PT-OP-C Subjective Start: 08/07/24 17:09 Freq: Status: Active Protocol: Document 08/28/24 16:15 DCW (Rec: 08/28/24 16:51 DCW [id number]) OP-PT Subjective Patient Comments Patient Comments Not great today, my left upper is bothering me quite a bit. Also, notes she needs to be out of the appointment by 1645 PT-OP-F Manual Assessment Start: 08/07/24 17:09 Freq: Status: Active Protocol: Document 08/07/24 13:45 DCW (Rec: 08/07/24 17:36 DCW [id number]) Manual Assessments Soft Tissue Assessment Soft Tissue Mobility Assessment Mild tone in upper trap and parascapular musculature, L>R Joint Mobility Assessment Joint Mobility Assessment Mild CW rotation at C4 PT-OP-K Range of Motion Start: 08/07/24 17:09 Freq: Status: Active Protocol: Document 08/07/24 13:45 DCW (Rec: 08/07/24 17:36 DCW [id number]) Cervical Spine Range of Motion Cervical Spine Active Degrees Testing Position Sitting Flexion 55 Extension 45 Rotation Left 66 Rotation Right 73 Lateral Flexion Left 50 Lateral Flexion Right 45 ROM Limitations Bony Restriction PT-OP-L Special Tests Start: 08/07/24 17:09 Freq: Status: Active Protocol: Document 08/07/24 13:45 DCW (Rec: 08/07/24 17:36 DCW [id number]) Special Tests Cervical Spine Special Tests Slump Test Results Negative Traction Test Results Decreased symptoms Spurling's Test Test Results Positive left lateral flexion Passive Neck Flexion Test Results Negative Foraminal Compression Test Results Negative PT-OP-Q Treatments Start: 08/07/24 17:09 Freq: Status: Active Protocol: Document 08/28/24 16:15 DCW (Rec: 08/28/24 16:51 DCW [id number]) Therapeutic Exercises Supine Exercises Upper Trap Supine Exercise Name Supine upper trap stretch Side bilateral Manual Therapy Treatment Consent Patient gave verbal consent for manual Yes treatment Soft Tissue Mobilization Cervical Body Location UT, Suboccipitals, Scalenes Mobilization Type Strumming,Sustained Pressure Manual Traction Cervical Body Position Supine Other Other Manual Treatments WMW - Resisted left cervical rotation Self-Care/Home Management Treatment Education Other Education Pt education on use of her new home cervical traction unit. PT-OP-R Modalities Start: 08/07/24 17:09 Freq: Status: Active Protocol: Document 08/13/24 13:45 DCW (Rec: 08/13/24 14:35 DCW [id number]) Spinal Traction Traction Treatment Cervical Method Mechanical Patient Position Hooklying Force Applied (Pounds) 10 Heating Pad Applied No PT-OP-T Assessment and Plan Start: 08/07/24 17:09 Freq: Status: Active Protocol: Document 08/28/24 16:15 DCW (Rec: 08/28/24 16:51 DCW [id number]) Physical Therapy Assessment Impairments Impairments Activity Tolerance,Functional Activities,Functional Mobility ,Pain,ROM Goals Two Impairment Left Cervical rotation limited to 66? Custodial Goal (LTG) Pt to demonstrate improved cervical rotation to >75? in order to improve functional mobility and decrease radicular pain LTG Duration 10/07/24 One Impairment Pt does not have an appropriate home exercise program Short Term Goal (STG) Pt to be independent and compliant with an appropriate HEP STG Duration 09/06/24 Assessment Summary Assessment Pt has purchased her own Cervical Traction unit, has not yet used it, wanted to discuss instructions in PT first. Pt tolerated STM well, hoping to be doing much better by the time she returns to Dr Capps in October. Physical Therapy Plan Frequency and Duration Frequency of Treatment 1x/Week Plan of Care Start Date 08/07/24 Plan of Care End Date 10/07/24 Therapeutic Interventions Therapeutic Interventions Home Exercise Program,Joint Mobilizations,Manual Therapy, Neuromuscular Re-education, Patient/Caregiver Education, Self-Care/Home Management,Soft Tissue Mobilization, Therapeutic Activities, Therapeutic Exercises Modalities Cold Pack/Ice Massage,Electric Stimulation,Hot Packs, Traction- Mechanical, Ultrasound Next Visit Focus/Plan Next Note Type Treatment Note Next Visit Plan STM, joint mobs, strengthening , trial of mechanical traction
--- NOTE | 2024-09-04 15:11 | PT.OTN ---
Current Diagnoses Radiculopathy, cervical region (09/04/24) Physical Therapy Treatment Note PT-OP-A Visit Information Start: 08/07/24 17:09 Freq: Status: Active Protocol: Document 09/04/24 14:30 DCW (Rec: 09/04/24 15:10 DCW [id number]) Out-Patient Physical Therapy Visit Information Visit Information Visit Type Treatment Note Visit Start Time 14:30 Visit Stop Time 15:15 Visit Number 4 Number of HOIST CYLINDER LOADER Visits 0 Evaluation Information Evaluation Date 08/07/24 PT-OP-B Current Condition Start: 08/07/24 17:09 Freq: Status: Active Protocol: Document 08/07/24 13:45 DCW (Rec: 08/07/24 17:36 DCW [id number]) Current Condition History of Current Condition Onset Date Four year history Current Complaints Left-sided mid back pain History of Current Condition Pt is a 64 year old female presenting with a four-year history of left mid-back pain. Pt reports she has been to therapy multiple times for this pain, with a focus on strengthening her back and shoulder muscles, but it's really difficult because it tends to increase all of her pain. Recently began seeing Dr Capps for pain management, who feels symptoms are actually radiating from her cervical spine. Did have an injection in her cervical spine, pt notes there was minimal benefit. Pt comes in to PT from the [facility], so is hoping to only come once a week and build up a good HEP that doesn't increase her pain . Referral also suggested trial of cervical traction Prior Treatments and Tests Cervical X-ray: IMPRESSION: Mild spondylosis. If there is high concern for further derangement, consider MRI evaluation. per Elizabeth Hogue. on 03/20/2024 Cervical MRI: IMPRESSION: Early degenerative changes most notable at C5-6 as above. Alisa Nuñez M.D. on 2021 PT-OP-C Subjective Start: 08/07/24 17:09 Freq: Status: Active Protocol: Document 09/04/24 14:30 DCW (Rec: 09/04/24 15:10 DCW [id number]) OP-PT Subjective Patient Comments Patient Comments Pt has been using her home traction unit, but feels it has been sliding up to her ears more than the unit here does. PT-OP-F Manual Assessment Start: 08/07/24 17:09 Freq: Status: Active Protocol: Document 08/07/24 13:45 DCW (Rec: 08/07/24 17:36 DCW [id number]) Manual Assessments Soft Tissue Assessment Soft Tissue Mobility Assessment Mild tone in upper trap and parascapular musculature, L>R Joint Mobility Assessment Joint Mobility Assessment Mild CW rotation at C4 PT-OP-K Range of Motion Start: 08/07/24 17:09 Freq: Status: Active Protocol: Document 08/07/24 13:45 DCW (Rec: 08/07/24 17:36 DCW [id number]) Cervical Spine Range of Motion Cervical Spine Active Degrees Testing Position Sitting Flexion 55 Extension 45 Rotation Left 66 Rotation Right 73 Lateral Flexion Left 50 Lateral Flexion Right 45 ROM Limitations Bony Restriction PT-OP-L Special Tests Start: 08/07/24 17:09 Freq: Status: Active Protocol: Document 08/07/24 13:45 DCW (Rec: 08/07/24 17:36 DCW [id number]) Special Tests Cervical Spine Special Tests Slump Test Results Negative Traction Test Results Decreased symptoms Spurling's Test Test Results Positive left lateral flexion Passive Neck Flexion Test Results Negative Foraminal Compression Test Results Negative PT-OP-Q Treatments Start: 08/07/24 17:09 Freq: Status: Active Protocol: Document 09/04/24 14:30 DCW (Rec: 09/04/24 15:10 DCW [id number]) Manual Therapy Treatment Consent Patient gave verbal consent for manual Yes treatment Soft Tissue Mobilization Cervical Body Location UT, Suboccipitals, Scalenes Mobilization Type Strumming,Sustained Pressure Manual Traction Cervical Body Position Supine Other Other Manual Treatments WMW - Resisted left cervical rotation PT-OP-R Modalities Start: 08/07/24 17:09 Freq: Status: Active Protocol: Document 09/04/24 14:30 DCW (Rec: 09/04/24 15:11 DCW [id number]) Spinal Traction Traction Treatment Cervical Method Mechanical Patient Position Hooklying Force Applied (Pounds) 10 Heating Pad Applied No PT-OP-T Assessment and Plan Start: 08/07/24 17:09 Freq: Status: Active Protocol: Document 09/04/24 14:30 DCW (Rec: 09/04/24 15:10 DCW [id number]) Physical Therapy Assessment Impairments Impairments Activity Tolerance,Functional Activities,Functional Mobility ,Pain,ROM Goals Two Impairment Left Cervical rotation limited to 66? Disease Case Manager Rn Goal (LTG) Pt to demonstrate improved cervical rotation to >75? in order to improve functional mobility and decrease radicular pain LTG Duration 10/07/24 One Impairment Pt does not have an appropriate home exercise program Short Term Goal (STG) Pt to be independent and compliant with an appropriate HEP STG Duration 09/06/24 Assessment Summary Assessment Pt requested trying mechanical traction here again, has questions about placement. Very good response to treatment, felt much better following STM today. Continue to focus on strengthening, STM , and joint mobs as tolerated. Physical Therapy Plan Frequency and Duration Frequency of Treatment 1x/Week Plan of Care Start Date 08/07/24 Plan of Care End Date 10/07/24 Therapeutic Interventions Therapeutic Interventions Home Exercise Program,Joint Mobilizations,Manual Therapy, Neuromuscular Re-education, Patient/Caregiver Education, Self-Care/Home Management,Soft Tissue Mobilization, Therapeutic Activities, Therapeutic Exercises Modalities Cold Pack/Ice Massage,Electric Stimulation,Hot Packs, Traction- Mechanical, Ultrasound Next Visit Focus/Plan Next Note Type Treatment Note Next Visit Plan STM, joint mobs, strengthening , mechanical traction
--- NOTE | 2024-09-11 12:50 | PT.OTN ---
Current Diagnoses Radiculopathy, cervical region (09/11/24) Physical Therapy Treatment Note PT-OP-A Visit Information Start: 08/07/24 17:09 Freq: Status: Active Protocol: Document 09/11/24 12:05 DCW (Rec: 09/11/24 12:50 DCW [id number]) Out-Patient Physical Therapy Visit Information Visit Information Visit Type Treatment Note Visit Note Student PT Romeo Herr participated in treatment session w/ PT direct supervision and direction Visit Start Time 12:05 Visit Stop Time 12:50 Visit Number 5 Number of AGRICULTURAL EQUIPMENT SALES MANAGER Visits 0 Evaluation Information Evaluation Date 08/07/24 PT-OP-B Current Condition Start: 08/07/24 17:09 Freq: Status: Active Protocol: Document 08/07/24 13:45 DCW (Rec: 08/07/24 17:36 DCW [id number]) Current Condition History of Current Condition Onset Date Four year history Current Complaints Left-sided mid back pain History of Current Condition Pt is a 64 year old female presenting with a four-year history of left mid-back pain. Pt reports she has been to therapy multiple times for this pain, with a focus on strengthening her back and shoulder muscles, but it's really difficult because it tends to increase all of her pain. Recently began seeing Dr Capps for pain management, who feels symptoms are actually radiating from her cervical spine. Did have an injection in her cervical spine, pt notes there was minimal benefit. Pt comes in to PT from the [facility], so is hoping to only come once a week and build up a good HEP that doesn't increase her pain . Referral also suggested trial of cervical traction Prior Treatments and Tests Cervical X-ray: IMPRESSION: Mild spondylosis. If there is high concern for further derangement, consider MRI evaluation. per Elizabeth Hogue. on 03/20/2024 Cervical MRI: IMPRESSION: Early degenerative changes most notable at C5-6 as above. Alisa Nuñez M.D. on 2021 PT-OP-C Subjective Start: 08/07/24 17:09 Freq: Status: Active Protocol: Document 09/11/24 12:05 DCW (Rec: 09/11/24 12:50 DCW [id number]) OP-PT Subjective Patient Comments Patient Comments Pt reports she has an issue today, has some spasm in her mid PT-OP-F Manual Assessment Start: 08/07/24 17:09 Freq: Status: Active Protocol: Document 08/07/24 13:45 DCW (Rec: 08/07/24 17:36 DCW [id number]) Manual Assessments Soft Tissue Assessment Soft Tissue Mobility Assessment Mild tone in upper trap and parascapular musculature, L>R Joint Mobility Assessment Joint Mobility Assessment Mild CW rotation at C4 PT-OP-K Range of Motion Start: 08/07/24 17:09 Freq: Status: Active Protocol: Document 08/07/24 13:45 DCW (Rec: 08/07/24 17:36 DCW [id number]) Cervical Spine Range of Motion Cervical Spine Active Degrees Testing Position Sitting Flexion 55 Extension 45 Rotation Left 66 Rotation Right 73 Lateral Flexion Left 50 Lateral Flexion Right 45 ROM Limitations Bony Restriction PT-OP-L Special Tests Start: 08/07/24 17:09 Freq: Status: Active Protocol: Document 08/07/24 13:45 DCW (Rec: 08/07/24 17:36 DCW [id number]) Special Tests Cervical Spine Special Tests Slump Test Results Negative Traction Test Results Decreased symptoms Spurling's Test Test Results Positive left lateral flexion Passive Neck Flexion Test Results Negative Foraminal Compression Test Results Negative PT-OP-Q Treatments Start: 08/07/24 17:09 Freq: Status: Active Protocol: Document 09/11/24 12:05 DCW (Rec: 09/11/24 12:50 DCW [id number]) Therapeutic Exercises Supine Exercises Flexion/Extension Supine Exercise Name Alternating opposite shoulder flex/ext Side bilateral Resistance Lv 1 Horizontal Abduction Supine Exercise Name Shoulder HAbd Side bilateral Resistance Lv 1 Manual Therapy Treatment Consent Patient gave verbal consent for manual Yes treatment Soft Tissue Mobilization Thoracic Body Location Thoracic Paraspinals Mobilization Type Sustained Pressure Intensity/Depth Moderate Body Position Prone Cervical Body Location UT, Suboccipitals, Scalenes Mobilization Type Strumming,Sustained Pressure Body Position Supine Manual Traction Cervical Body Position Supine PT-OP-R Modalities Start: 08/07/24 17:09 Freq: Status: Active Protocol: Document 09/04/24 14:30 DCW (Rec: 09/04/24 15:11 DCW [id number]) Spinal Traction Traction Treatment Cervical Method Mechanical Patient Position Hooklying Force Applied (Pounds) 10 Heating Pad Applied No PT-OP-T Assessment and Plan Start: 08/07/24 17:09 Freq: Status: Active Protocol: Document 09/11/24 12:05 DCW (Rec: 09/11/24 12:50 DCW [id number]) Physical Therapy Assessment Impairments Impairments Activity Tolerance,Functional Activities,Functional Mobility ,Pain,ROM Goals Two Impairment Left Cervical rotation limited to 66? Long-Term Goal (LTG) Pt to demonstrate improved cervical rotation to >75? in order to improve functional mobility and decrease radicular pain LTG Duration 10/07/24 One Impairment Pt does not have an appropriate home exercise program Short Term Goal (STG) Pt to be independent and compliant with an appropriate HEP STG Duration 09/06/24 Assessment Summary Assessment Pt experiencing some mild increased tone along thoracic paraspinals today, however cervical tone showing good overall improvement. Tolerated new exercise well, felt it was good to have stability through spine in supine during exercise. Discussed self-STM in thoracic paraspinals with tennis ball. Continue focus on cervical traction, functional mobility, STM, and strengthening. Physical Therapy Plan Frequency and Duration Frequency of Treatment 1x/Week Plan of Care Start Date 08/07/24 Plan of Care End Date 10/07/24 Therapeutic Interventions Therapeutic Interventions Home Exercise Program,Joint Mobilizations,Manual Therapy, Neuromuscular Re-education, Patient/Caregiver Education, Self-Care/Home Management,Soft Tissue Mobilization, Therapeutic Activities, Therapeutic Exercises Modalities Cold Pack/Ice Massage,Electric Stimulation,Hot Packs, Traction- Mechanical, Ultrasound Next Visit Focus/Plan Next Note Type Treatment Note Next Visit Plan STM, joint mobs, strengthening , trial of mechanical traction
--- NOTE | 2024-09-18 12:16 | PT.OTN ---
Current Diagnoses Radiculopathy, cervical region (09/18/24) Physical Therapy Treatment Note PT-OP-A Visit Information Start: 08/07/24 17:09 Freq: Status: Active Protocol: Document 09/18/24 11:30 DCW (Rec: 09/18/24 12:16 DCW [id number]) Out-Patient Physical Therapy Visit Information Visit Information Visit Type Treatment Note Visit Note Pt requests out by 1210 to get to next appt Visit Start Time 11:30 Visit Stop Time 12:10 Visit Number 6 Number of FULFILLMENT SPECIALIST Visits 0 Evaluation Information Evaluation Date 08/07/24 PT-OP-B Current Condition Start: 08/07/24 17:09 Freq: Status: Active Protocol: Document 08/07/24 13:45 DCW (Rec: 08/07/24 17:36 DCW [id number]) Current Condition History of Current Condition Onset Date Four year history Current Complaints Left-sided mid back pain History of Current Condition Pt is a 64 year old female presenting with a four-year history of left mid-back pain. Pt reports she has been to therapy multiple times for this pain, with a focus on strengthening her back and shoulder muscles, but it's really difficult because it tends to increase all of her pain. Recently began seeing Dr Capps for pain management, who feels symptoms are actually radiating from her cervical spine. Did have an injection in her cervical spine, pt notes there was minimal benefit. Pt comes in to PT from the [facility], so is hoping to only come once a week and build up a good HEP that doesn't increase her pain . Referral also suggested trial of cervical traction Prior Treatments and Tests Cervical X-ray: IMPRESSION: Mild spondylosis. If there is high concern for further derangement, consider MRI evaluation. per Elizabeth Hogue. on 03/20/2024 Cervical MRI: IMPRESSION: Early degenerative changes most notable at C5-6 as above. Alisa Nuñez M.D. on 2021 PT-OP-C Subjective Start: 08/07/24 17:09 Freq: Status: Active Protocol: Document 09/18/24 11:30 DCW (Rec: 09/18/24 12:16 DCW [id number]) OP-PT Subjective Patient Comments Patient Comments There are good days and bad days. I feel best in the morning, and then it gets worse throughout the day. PT-OP-F Manual Assessment Start: 08/07/24 17:09 Freq: Status: Active Protocol: Document 08/07/24 13:45 DCW (Rec: 08/07/24 17:36 DCW [id number]) Manual Assessments Soft Tissue Assessment Soft Tissue Mobility Assessment Mild tone in upper trap and parascapular musculature, L>R Joint Mobility Assessment Joint Mobility Assessment Mild CW rotation at C4 PT-OP-K Range of Motion Start: 08/07/24 17:09 Freq: Status: Active Protocol: Document 08/07/24 13:45 DCW (Rec: 08/07/24 17:36 DCW [id number]) Cervical Spine Range of Motion Cervical Spine Active Degrees Testing Position Sitting Flexion 55 Extension 45 Rotation Left 66 Rotation Right 73 Lateral Flexion Left 50 Lateral Flexion Right 45 ROM Limitations Bony Restriction PT-OP-L Special Tests Start: 08/07/24 17:09 Freq: Status: Active Protocol: Document 08/07/24 13:45 DCW (Rec: 08/07/24 17:36 DCW [id number]) Special Tests Cervical Spine Special Tests Slump Test Results Negative Traction Test Results Decreased symptoms Spurling's Test Test Results Positive left lateral flexion Passive Neck Flexion Test Results Negative Foraminal Compression Test Results Negative PT-OP-Q Treatments Start: 08/07/24 17:09 Freq: Status: Active Protocol: Document 09/18/24 11:30 DCW (Rec: 09/18/24 12:16 DCW [id number]) Manual Therapy Treatment Consent Patient gave verbal consent for manual Yes treatment Soft Tissue Mobilization Thoracic Body Location Thoracic Paraspinals Mobilization Type Sustained Pressure Intensity/Depth Moderate Body Position Prone Cervical Body Location UT, Suboccipitals, Scalenes Mobilization Type Strumming,Sustained Pressure Body Position Supine Manual Traction Cervical Body Position Supine PT-OP-R Modalities Start: 08/07/24 17:09 Freq: Status: Active Protocol: Document 09/04/24 14:30 DCW (Rec: 09/04/24 15:11 DCW [id number]) Spinal Traction Traction Treatment Cervical Method Mechanical Patient Position Hooklying Force Applied (Pounds) 10 Heating Pad Applied No PT-OP-T Assessment and Plan Start: 08/07/24 17:09 Freq: Status: Active Protocol: Document 09/18/24 11:30 DCW (Rec: 09/18/24 12:16 DCW [id number]) Physical Therapy Assessment Impairments Impairments Activity Tolerance,Functional Activities,Functional Mobility ,Pain,ROM Goals Two Impairment Left Cervical rotation limited to 66? Harvest Worker Fruit Goal (LTG) Pt to demonstrate improved cervical rotation to >75? in order to improve functional mobility and decrease radicular pain LTG Duration 10/07/24 One Impairment Pt does not have an appropriate home exercise program Short Term Goal (STG) Pt to be independent and compliant with an appropriate HEP STG Duration 09/06/24 Assessment Summary Assessment Pt noting some increased difficulty with pain off and on, typically later in the day . Demonstrating some improvements in muscle tone, but still experiencing similar pain in thoracic spine. Physical Therapy Plan Frequency and Duration Frequency of Treatment 1x/Week Plan of Care Start Date 08/07/24 Plan of Care End Date 10/07/24 Therapeutic Interventions Therapeutic Interventions Home Exercise Program,Joint Mobilizations,Manual Therapy, Neuromuscular Re-education, Patient/Caregiver Education, Self-Care/Home Management,Soft Tissue Mobilization, Therapeutic Activities, Therapeutic Exercises Modalities Cold Pack/Ice Massage,Electric Stimulation,Hot Packs, Traction- Mechanical, Ultrasound Next Visit Focus/Plan Next Note Type Treatment Note Next Visit Plan STM, joint mobs, strengthening , trial of mechanical traction
--- NOTE | 2024-10-08 15:15 | PT.OTN ---
Current Diagnoses Radiculopathy, cervical region (10/08/24) Physical Therapy Treatment Note PT-OP-A Visit Information Start: 08/07/24 17:09 Freq: Status: Active Protocol: Document 10/08/24 14:35 DCW (Rec: 10/08/24 15:15 DCW [id number]) Out-Patient Physical Therapy Visit Information Visit Information Visit Type Progress Note Visit Start Time 14:35 Visit Stop Time 15:15 Visit Number 8 Number of [employer]AV[employer]ENT[employer]OCIATE Visits 0 Evaluation Information Evaluation Date 08/07/24 PT-OP-B Current Condition Start: 08/07/24 17:09 Freq: Status: Active Protocol: Document 08/07/24 13:45 DCW (Rec: 08/07/24 17:36 DCW [id number]) Current Condition History of Current Condition Onset Date Four year history Current Complaints Left-sided mid back pain History of Current Pt is a 64 year old female presenting with a four-year Condition history of left mid-back pain. Pt reports she has been to therapy multiple times for this pain, with a focus on strengthening her back and shoulder muscles, but it' s really difficult because it tends to increase all of her pain. Recently began seeing Dr Capps for pain management, who feels symptoms are actually radiating from her cervical spine. Did have an injection in her cervical spine, pt notes there was minimal benefit. Pt comes in to PT from the [facility], so is hoping to only come once a week and build up a good HEP that doesn't increase her pain. Referral also suggested trial of cervical traction Prior Treatments and Cervical X-ray: IMPRESSION: Mild spondylosis. If Tests there is high concern for further derangement, consider MRI evaluation. per Jose Zamora M.D. on 03/20/2024 Cervical MRI: IMPRESSION: Early degenerative changes most notable at C5-6 as above. Alisa Nuñez M.D. on 02/15/2022 PT-OP-C Subjective Start: 08/07/24 17:09 Freq: Status: Active Protocol: Document 10/08/24 14:35 DCW (Rec: 10/08/24 14:41 DCW [id number]) OP-PT Subjective Patient Comments Patient Comments I've been having a really hard time with the pain in my upper back. It's hard, I want it to be better, it is really just a grabbing pain. I do the traction, and it feels good while I do it, but then it doesn't feel good after. Has been working on her new HEP, feels increased strain with horizontal abduction, but rows are okay. Able to tolerate half reps of the pec stretch. Overall, doesn't feel any of it is making her worse, but she is also not seeing any improvement. Patient Reported Same Progress PT-OP-F Manual Assessment Start: 08/07/24 17:09 Freq: Status: Active Protocol: Document 10/08/24 14:35 DCW (Rec: 10/08/24 14:56 DCW [id number]) Manual Assessments Soft Tissue Assessment Soft Tissue Mobility Mild tone in B upper trap and parascapular musculature Assessment Joint Mobility Assessment Joint Mobility Mild CW rotation at C4 Assessment PT-OP-K Range of Motion Start: 08/07/24 17:09 Freq: Status: Active Protocol: Document 10/08/24 14:35 DCW (Rec: 10/08/24 14:56 DCW [id number]) Cervical Spine Range of Motion Cervical Spine Active Degrees Testing Position Sitting Flexion 55 Extension 45 Rotation Left 65 Rotation Right 75 Lateral Flexion Left 40 Lateral Flexion 35 Right ROM Limitations Bony Restriction PT-OP-L Special Tests Start: 08/07/24 17:09 Freq: Status: Active Protocol: Document 10/08/24 14:35 DCW (Rec: 10/08/24 14:56 DCW [id number]) Special Tests Cervical Spine Special Tests Spurling's Test Test Results Positive B lateral flexion PT-OP-Q Treatments Start: 08/07/24 17:09 Freq: Status: Active Protocol: Document 10/08/24 14:35 DCW (Rec: 10/08/24 15:15 DCW [id number]) Manual Therapy Treatment Consent Patient gave verbal Yes consent for manual treatment Soft Tissue Mobilization Thoracic Body Location Thoracic Paraspinals Mobilization Type Sustained Pressure Intensity/Depth Moderate Body Position Prone Cervical Body Location UT, Suboccipitals, Scalenes Mobilization Type Strumming,Sustained Pressure Body Position Supine Manual Traction Cervical Body Position Supine PT-OP-R Modalities Start: 08/07/24 17:09 Freq: Status: Active Protocol: Document 09/04/24 14:30 DCW (Rec: 09/04/24 15:11 DCW [id number]) Spinal Traction Traction Treatment Cervical Method Mechanical Patient Position Hooklying Force Applied ( 10 Pounds) Heating Pad Applied No PT-OP-T Assessment and Plan Start: 08/07/24 17:09 Freq: Status: Active Protocol: Document 10/08/24 14:35 DCW (Rec: 10/08/24 15:15 DCW [id number]) Physical Therapy Assessment Goals Two Impairment Left Cervical rotation limited to 66? Direct Marketing Intern Goal (LTG) Pt to demonstrate improved cervical rotation to >75? in order to improve functional mobility and decrease radicular pain LTG Duration 10/22/24 One Impairment Pt does not have an appropriate home exercise program Short Term Goal (STG Pt to be independent and compliant with an appropriate ) HEP STG Duration 10/22/24 Assessment Summary Assessment Pt largely unchanged since initial evaluation. Cervical ROM and soft tissue tone largely the same. Pt gets pain relief with traction, but pain returns shortly afterward. Pt not really responding well to conservative treatment. Will see pt another 1-2 visits to review HEP and traction use, and then likely discharge back to referring physician Physical Therapy Plan Frequency and Duration Frequency of 1x/Week Treatment Plan of Care Start 10/08/24 Date Plan of Care End 10/22/24 Date Therapeutic Interventions Therapeutic Home Exercise Program,Joint Mobilizations,Manual Interventions Therapy,Neuromuscular Re-education,Patient/Caregiver Education,Self-Care/Home Management,Soft Tissue Mobilization,Therapeutic Activities,Therapeutic Exercises Modalities Cold Pack/Ice Massage,Electric Stimulation,Hot Packs, Traction- Mechanical,Ultrasound Next Visit Focus/Plan Next Note Type Discharge Summary Next Visit Plan STM, joint mobs, strengthening, trial of mechanical traction
--- NOTE | 2024-10-08 15:15 | PT.OPPOC ---
Physical, Occupational & Speech Therapy At [facility] Current Diagnoses Radiculopathy, cervical region (10/08/24) Visit Care Team Role Provider Type ALBERTA Perez FNP-C Primary Care Provider Non-Staff Specialty: Family Practice Address: [address] [place] [address], [address], [place], [address] Email: Anton Capps DO Attending Provider Physician Referring Provider Specialty: Interventional Radiology Physiatry Pain Management Address: [address] [place], [address] Email: [email or web address] Plan Of Care PT-OP-B Current Condition Start: 08/07/24 17:09 Freq: Status: Active Protocol: Document 08/07/24 13:45 DCW (Rec: 08/07/24 17:36 DCW [id number]) Current Condition History of Current Condition Onset Date Four year history Current Complaints Left-sided mid back pain History of Current Pt is a 64 year old female presenting with a four-year Condition history of left mid-back pain. Pt reports she has been to therapy multiple times for this pain, with a focus on strengthening her back and shoulder muscles, but it' s really difficult because it tends to increase all of her pain. Recently began seeing Dr Capps for pain management, who feels symptoms are actually radiating from her cervical spine. Did have an injection in her cervical spine, pt notes there was minimal benefit. Pt comes in to PT from the [facility], so is hoping to only come once a week and build up a good HEP that doesn't increase her pain. Referral also suggested trial of cervical traction Prior Treatments and Cervical X-ray: IMPRESSION: Mild spondylosis. If Tests there is high concern for further derangement, consider MRI evaluation. per Jose Zamora M.D. on 03/20/2024 Cervical MRI: IMPRESSION: Early degenerative changes most notable at C5-6 as above. Alisa Nuñez M.D. on 02/15/2022 PT-OP-T Assessment and Plan Start: 08/07/24 17:09 Freq: Status: Active Protocol: Document 10/08/24 14:35 DCW (Rec: 10/08/24 15:15 DCW [id number]) Physical Therapy Assessment Goals Two Impairment Left Cervical rotation limited to 66? Principal Clerk Goal (LTG) Pt to demonstrate improved cervical rotation to >75? in order to improve functional mobility and decrease radicular pain LTG Duration 10/22/24 One Impairment Pt does not have an appropriate home exercise program Short Term Goal (STG Pt to be independent and compliant with an appropriate ) HEP STG Duration 10/22/24 Assessment Summary Assessment Pt largely unchanged since initial evaluation. Cervical ROM and soft tissue tone largely the same. Pt gets pain relief with traction, but pain returns shortly afterward. Pt not really responding well to conservative treatment. Will see pt another 1-2 visits to review HEP and traction use, and then likely discharge back to referring physician Physical Therapy Plan Frequency and Duration Frequency of 1x/Week Treatment Plan of Care Start 10/08/24 Date Plan of Care End 10/22/24 Date Therapeutic Interventions Therapeutic Home Exercise Program,Joint Mobilizations,Manual Interventions Therapy,Neuromuscular Re-education,Patient/Caregiver Education,Self-Care/Home Management,Soft Tissue Mobilization,Therapeutic Activities,Therapeutic Exercises Modalities Cold Pack/Ice Massage,Electric Stimulation,Hot Packs, Traction- Mechanical,Ultrasound Next Visit Focus/Plan Next Note Type Discharge Summary Next Visit Plan STM, joint mobs, strengthening, trial of mechanical traction Plan of Care Dates Plan of Care Start Date 10/08/24 Plan of Care End Date 10/22/24 Electronically Signed by: Erickson Templeton, PT 10/08/24 2669 If you are in agreement with this Plan of Care, please return a signed and dated copy. I have reviewed this Plan of Care and certify that the skilled therapy services above are required to meet the patient?s needs. Physician Signature Date Printed Name and Credentials Clinical Instructor Signature Printed Name and Credentials
--- NOTE | 2024-10-10 11:58 | PT.OPDS ---
Current Diagnoses Radiculopathy, cervical region (10/08/24) Visit Care Team Role Provider Type ALBERTA Perez, [employer]ER[employer]-C Primary Care Provider Non-Staff Specialty: Family Practice Address: [address] [place] [address], [address], [place], [address] Email: Anton Capps DO Attending Provider Physician Referring Provider Specialty: Interventional Radiology Physiatry Pain Management Address: [facility] [place], [address] Email: [email or web address] Visit Number Visit Number 8 Discharge Summary PT-OP-B Current Condition Start: 08/07/24 17:09 Freq: Status: Active Protocol: Document 08/07/24 13:45 DCW (Rec: 08/07/24 17:36 DCW [id number]) Current Condition History of Current Condition Onset Date Four year history Current Complaints Left-sided mid back pain History of Current Pt is a 64 year old female presenting with a four-year Condition history of left mid-back pain. Pt reports she has been to therapy multiple times for this pain, with a focus on strengthening her back and shoulder muscles, but it' s really difficult because it tends to increase all of her pain. Recently began seeing Dr Capps for pain management, who feels symptoms are actually radiating from her cervical spine. Did have an injection in her cervical spine, pt notes there was minimal benefit. Pt comes in to PT from the [facility], so is hoping to only come once a week and build up a good HEP that doesn't increase her pain. Referral also suggested trial of cervical traction Prior Treatments and Cervical X-ray: IMPRESSION: Mild spondylosis. If Tests there is high concern for further derangement, consider MRI evaluation. per Jose Zamora M.D. on 03/20/2024 Cervical MRI: IMPRESSION: Early degenerative changes most notable at C5-6 as above. Alisa Nuñez M.D. on 02/15/2022 PT-OP-C Subjective Start: 08/07/24 17:09 Freq: Status: Active Protocol: Document 10/08/24 14:35 DCW (Rec: 10/08/24 14:41 DCW [id number]) OP-PT Subjective Patient Comments Patient Comments I've been having a really hard time with the pain in my upper back. It's hard, I want it to be better, it is really just a grabbing pain. I do the traction, and it feels good while I do it, but then it doesn't feel good after. Has been working on her new HEP, feels increased strain with horizontal abduction, but rows are okay. Able to tolerate half reps of the pec stretch. Overall, doesn't feel any of it is making her worse, but she is also not seeing any improvement. Patient Reported Same Progress PT-OP-F Manual Assessment Start: 08/07/24 17:09 Freq: Status: Active Protocol: Document 10/08/24 14:35 DCW (Rec: 10/08/24 14:56 DCW [id number]) Manual Assessments Soft Tissue Assessment Soft Tissue Mobility Mild tone in B upper trap and parascapular musculature Assessment Joint Mobility Assessment Joint Mobility Mild CW rotation at C4 Assessment PT-OP-K Range of Motion Start: 08/07/24 17:09 Freq: Status: Active Protocol: Document 10/08/24 14:35 DCW (Rec: 10/08/24 14:56 DCW [id number]) Cervical Spine Range of Motion Cervical Spine Active Degrees Testing Position Sitting Flexion 55 Extension 45 Rotation Left 65 Rotation Right 75 Lateral Flexion Left 40 Lateral Flexion 35 Right ROM Limitations Bony Restriction PT-OP-L Special Tests Start: 08/07/24 17:09 Freq: Status: Active Protocol: Document 10/08/24 14:35 DCW (Rec: 10/08/24 14:56 DCW [id number]) Special Tests Cervical Spine Special Tests Spurling's Test Test Results Positive B lateral flexion PT-OP-T Assessment and Plan Start: 08/07/24 17:09 Freq: Status: Active Protocol: Document 10/10/24 11:57 DCW (Rec: 10/10/24 11:58 DCW [id number]) Physical Therapy Assessment Assessment Summary Assessment Pt phoned clinic to cancel remaining visits. Feels she is ready for discharge at this time. Physical Therapy Plan Frequency and Duration Frequency of 1x/Week Treatment Plan of Care Start 10/08/24 Date Plan of Care End 10/22/24 Date Discharge Physical Therapy Discharge Reasons Patient Request
== END 2024-10-14 10:09 | disposition home or self-care (01) ==
LOC: PHYS 14:30
PROVIDERS: PCP Nurse Practitioner Family; Referring Provider Physical Medicine & Rehabilitation; Visit Provider Physical Medicine & Rehabilitation
DX: M54.12 Radiculopathy, cervical region (principal)
CPT/HCPCS: 97012; 97110; 97140; 97163; 97535

== ENCOUNTER → 2025-01-15 09:02 | Outpatient (CLI) | payer OTHER, SELFPAY ==
[2025-01-15 09:50] LABS: Add Manual Diff / Slide Review NO; Hematocrit 41.1 % (36-46); Hemoglobin 14.0 g/dL (12.0-16.0); Lymphocytes Absolute Auto 1700 /uL (1100-4500); Mean Corpuscular HGB Conc 34.2 % (30-36); Mean Corpuscular Hemoglobin 32.2 PG (26-34); Mean Corpuscular Volume 94.3 fL (80-100); Platelet Count 292 X10^3/uL (150-400)
[2025-01-15 10:20] LABS: Alanine Aminotransferase 20 IU/L (<35); Albumin 4.5 g/dL (3.5-5.0); Albumin Globulin Ratio 1.4 (1.0-2.8); Alkaline Phosphatase 66 U/L (38-126); Blood Urea Nitrogen 22 mg/dL (7-17); Calcium 10.2 mg/dL (8.4-10.2); Carbon Dioxide 28 mmol/L (22-32); Chloride 100 mmol/L (98-107); Estimated Glomerular Filt Rate > 60 mL/min (>60); Globulin 3.2 g/dL (1.7-4.1); Glucose 87 mg/dL (70-99); HEMOLYSIS < 15 (0-50); Potassium 4.8 mmol/L (3.4-5.1); Sodium 137 mmol/L (137-145); Total Protein 7.7 g/dL (6.3-8.2)
[2025-01-16 05:35] LABS: Valproic Acid (Depakene) Total 38 ug/mL (50-100)
== END ==
PROVIDERS: PCP Nurse Practitioner Family; Referring Provider Nurse Practitioner Family; Visit Provider Psychiatry & Neurology Psychiatry
DX: F31.81 Bipolar II disorder (principal); F41.1 Generalized anxiety disorder; F50.811 Binge eating disorder, moderate
CPT/HCPCS: 36415; 80053; 80164; 85025

== ENCOUNTER → 2025-02-03 10:14 | Outpatient (CLI) | payer OTHER, SELFPAY ==
[2025-02-04 04:11] LABS: Valproic Acid (Depakene) Total 46 ug/mL (50-100)
== END ==
PROVIDERS: PCP Nurse Practitioner Family; Referring Provider Nurse Practitioner Family; Visit Provider Psychiatry & Neurology Psychiatry
DX: F31.81 Bipolar II disorder (principal); F41.1 Generalized anxiety disorder; F50.811 Binge eating disorder, moderate; Z79.899 Other long term (current) drug therapy
CPT/HCPCS: 36415; 80164

== ENCOUNTER → 2025-02-12 09:40 | Outpatient (CLI) | payer OTHER, SELFPAY ==
[2025-02-14 03:08] LABS: Valproic Acid (Depakene) Total 58 ug/mL (50-100)
== END ==
PROVIDERS: PCP Nurse Practitioner Family; Referring Provider Psychiatry & Neurology Psychiatry; Visit Provider Psychiatry & Neurology Psychiatry
DX: F31.81 Bipolar II disorder (principal); F41.1 Generalized anxiety disorder; F50.811 Binge eating disorder, moderate
CPT/HCPCS: 36415; 80164

== ENCOUNTER → 2025-02-25 08:27 | Outpatient (CLI) | payer OTHER, SELFPAY ==
[2025-02-25 09:08] LABS: Add Manual Diff / Slide Review NO; Hematocrit 39.9 % (36-46); Hemoglobin 13.7 g/dL (12.0-16.0); Lymphocytes Absolute Auto 1700 /uL (1100-4500); Mean Corpuscular HGB Conc 34.4 % (30-36); Mean Corpuscular Hemoglobin 32.4 PG (26-34); Mean Corpuscular Volume 93.9 fL (80-100); Platelet Count 252 X10^3/uL (150-400)
[2025-02-25 09:41] LABS: Alanine Aminotransferase 15 IU/L (<35); Albumin 4.0 g/dL (3.5-5.0); Albumin Globulin Ratio 1.3 (1.0-2.8); Alkaline Phosphatase 63 U/L (38-126); Blood Urea Nitrogen 16 mg/dL (7-17); Calcium 10.0 mg/dL (8.4-10.2); Carbon Dioxide 28 mmol/L (22-32); Chloride 101 mmol/L (98-107); Estimated Glomerular Filt Rate > 60 mL/min (>60); Globulin 3.1 g/dL (1.7-4.1); Glucose 83 mg/dL (70-99); HEMOLYSIS < 15 (0-50); Potassium 5.0 mmol/L (3.4-5.1); Sodium 135 mmol/L (137-145); Total Protein 7.1 g/dL (6.3-8.2)
[2025-02-27 07:09] LABS: Valproic Acid (Depakene) Total 76 ug/mL (50-100)
== END ==
PROVIDERS: PCP Student in an Organized Health Care Education/Training Program; Referring Provider Psychiatry & Neurology Psychiatry; Visit Provider Psychiatry & Neurology Psychiatry
DX: F31.81 Bipolar II disorder (principal); F41.1 Generalized anxiety disorder; F50.811 Binge eating disorder, moderate
CPT/HCPCS: 36415; 80053; 80164; 85025

== ENCOUNTER → 2025-04-01 15:52 | Outpatient (CLI) | payer OTHER, SELFPAY ==
--- NOTE | 2025-05-28 10:22 | DIET.OUTPTC ---
Dietary Outpatient Consult Consult Date:04/01/25 over telehealth Assessment:?65 y F referred to dietitian for E78.00 Pure hypercholesterolemia, unspecified Z98.84 Bariatric surgery status Pt w hx of gastric bypass - sleeve - in June 2020 and initial weight loss from 275# to 160#. Weight regain now to 180#. Pt notes food noise and is starting GLP to help. Doesn't want to track or count calories, notes binge eating 1x/wk (after further assessment binge eating seems to be subjective rather than objective binge). Overall, would like to focus on a more intuitive eating approach to help make right food selections. Notes doing more protein powders since surgery and would like to switch these for other foods. GI symptoms: 2 BM daily 1 regular and 1 looser BM Diet Recall: 6am- tea w milk B-yogurt puerto rican with pro powder unjury 20 g, 1 c raw fruit, fiber1 cereal w/ tea and milk snack- 1/2 bagel + pb OR oats + pb L- egg bites (meat, cheese, vegs, egg) snack- 1/2 apple+ nuts OR sardines and pickled beets OR raw vegs and hummus [id number] w EVOO, veg OR salads OR nuts and cheese snack-skinny pop and cheese baby calixto Fluids:tea and water 02/29/2512:19 Height 6 ft Weight 187 lb BMI 25.3 Activity:not discussed Pertinent Labs:83 BG in Feb 2025, last A1c 5.0% in 2023, LDL 128 02/07/24 Nutrition Diagnosis:? Food and nutrition related knowledge deficit r/t looking for guidance on food ideas/meal selections and intuitive eating approach as evidenced by pt assessment Interventions:? Discussed and provided appropriate resources on the following: -Completed assessment -Balanced meals and snacks in line with myplate, Mediterranean style of eating -Intuitive eating principals/practice -Meal and snack ideas Goals: -Review IE journal prompts -Swedish yogurt and almond/nuts to meet 20 g protein need in morning, trial of alternatives like tofu scrambles, protein pancake/waffles made with puerto rican yogurt/cottage cheese EER:? 85 g protein (1g/kg per on wt loss medication) Monitoring/Evaluations:? F/u in 1 m Electronically Signed by: Lia Sandoval Clinical Dietitian [address] [address]
== END ==
LOC: DIET 04-02 15:53
PROVIDERS: PCP Student in an Organized Health Care Education/Training Program; Referring Provider Student in an Organized Health Care Education/Training Program
DX: E78.00 Pure hypercholesterolemia, unspecified (principal); Z98.84 Bariatric surgery status; Z71.3 Dietary counseling and surveillance; Z68.25 Body mass index [BMI] 25.0-25.9, adult
CPT/HCPCS: 97802